=== PATIENT | female | born 1940 | race African-American/Black ===

== ENCOUNTER → 2016-04-16 | Outpatient (CLI) | payer MEDICARE, BC, OTHER ==
[~2016-04-16] MED LIST: 00186-0372-20 IH; ADVAIR 100/28 DISKUS IH; ALBUTEROL0.83 MG/ML IH; ASPIRIN 32325 MG/TAB PO; CALCIUM CARB W/1 TA1 PO; CELEXA 20MG20 MG/TA1 PO; CELEXA40 MG PO; CLARITIN 1010 MG/TAB PO; COMBIVENT INH14.7 GM IH; COUMADIN3 MG PO; DOXYCYCLINE 10100 MG PO; FENTANYL; FERROUS SU325 MG/TAB PO; FLAX OIL1000 MG PO; FLEXERIL 1010 MG/TAB PO; FLONASEALLERGY NS; GABAPENTIN TAB600 MG PO; GABAPENTIN600 MG PO; IPRATROPIUM BROM3 M1 IH; LEVAQUIN 5500 MG/TA1 PO; LIDODERM 5% PATC1 EA TP; LIPITOR 80MG80 MG PO; LODINE200 MG PO; LORTAB 10/500 51 TAB PO; LORTAB 5/500 501 TAB PO; LORTAB 7.5/5001 TAB PO; METOPROLOL SUCC25 MG PO; MIRALAX PA17 GM/Dose PO; NEURONTIN600 MG/TAB PO; NITROSTAT0.4 MG SL; NORCO 325 MG-51 TAB PO; NORCO 325 MG-7.1 TAB PO; OMEGA-3 FISH1000 MG PO; PERCOCET 325 MG1 TA2 PO; PLAVIX 75MG TAB75 MG PO; PREDNISONE10 MG PO; PREDNISONE20 MG PO; PREMARIN .3MG0.3 MG PO; PRILOSEC 20MG20 MG PO; PROVENTIL0.09 MG/A1 IH; RT ADVAIR 128 DISKUS IH; SIMVASTATIN20 MG PO; SINGULAIR 110 MG/TAB PO; TESSALON PERLE200 MG PO; TRIAMCINOLONE A15 G3 TP; VENTOLIN0.09 MG IH; VITAMIN D1000 IU PO; VOLTAREN GEL 1%1 TU TP; ZANTAC 150MG T150 MG PO; ZESTRIL2.5 MG PO; ZITHROMAX Z PA250 MG PO; ZOCOR 20MG20 MG PO; [UNRECOGNIZED DRUG - OTHER] PO
== END ==
LOC: MC.RAD 08:05
DX: Z12.31 Encounter for screening mammogram for malignant neoplasm of breast (principal); Z80.3 Family history of malignant neoplasm of breast

== ENCOUNTER → 2016-11-18 | Outpatient (CLI) | payer MEDICARE, BC, OTHER | LOC: COL.PUL 10:00 | DX: R06.02 Shortness of breath (principal); Z87.891 Personal history of nicotine dependence | CPT/HCPCS: J7674 ==

== ENCOUNTER 2017-03-19 13:00 | Outpatient (RCR) | payer MEDICARE, BC, OTHER ==
[2017-01-22 15:30] VITALS: BP 138/55; PULSE 64; TEMP 97.9
[2017-02-19 12:56] VITALS: BP 114/64; PULSE 67; TEMP 97.5
[~2017-03-19] VITALS: Ht 165.1 cm; Wt 82.4 kg
[2017-03-19 13:00] VITALS: BP 126/57; PULSE 67; TEMP 97.3
[~2017-03-19 13:00] MED LIST changes: +AMOXICILLIN 25250 MG
[2017-03-19] MEDS ORDERED: VITAMIN C500 MG PO (13:10)
[2017-03-19] MEDS ORDERED: ZITHROMAX 250M250 MG PO (13:10)
[2017-03-19] MEDS ORDERED: FOLIC ACID 40400 MCG PO (13:10)
[2017-03-19] MEDS ORDERED: RT SPIRIVA18 MCG IH (13:11)
[2017-03-19] MEDS ORDERED: XOPENEX HF0.045 MG/A IH (13:12)
== END 2017-03-19 13:38 | disposition home or self-care (01) ==
LOC: EUO 13:00
DX: J45.40 Moderate persistent asthma, uncomplicated (principal); Z79.899 Other long term (current) drug therapy
CPT/HCPCS: J2182

== ENCOUNTER 2017-04-14 17:46 | Inpatient (IN) | payer MEDICARE, BC, OTHER ==
[~2017-04-14] VITALS: Ht 175.3 cm; Wt 89.0 kg
[~2017-04-14 17:46] MED LIST changes: +CELEXA 20MG20 MG/TAB PO; -CELEXA40 MG PO; +FOLIC ACID 40400 MCG PO; -RT ADVAIR 128 DISKUS IH; +RT ADVAIR 528 DISKUS IH; +RT SPIRIVA18 MCG IH; +VITAMIN C500 MG PO; +XARELTO10 MG PO; +XOPENEX HF0.045 MG/A IH; +ZITHROMAX 250M250 MG PO
[2017-04-14 18:18] LABS: BASO % 0.5 % (0.0-2.0); EOS # 0.1 (0.0-0.7); EOS % 0.7 % (0-4.0); GRAN # 5.2 (1.4-6.5); GRAN % 68.3 % (42.2-75.2); HEMATOCRIT 25.8 % (37.0-47.0); HEMOGLOBIN 8.4 g/dl (12.5-16.0); LYMPH # 1.1 (1.2-3.4); LYMPH % 13.8 % (20.0-51.0); MEAN CELL VOLUME 81 fl (80.0-100.0); MEAN CORPUSCULAR HEMOGLOBIN 26 pg (27.0-31.0); MEAN CORPUSCULAR HGB CONC 33 g/dl (33.0-37.0); MEAN PLATELET VOLUME 10.1 fl (7.4-10.4); MONO # 1.2 (0.1-0.6); MONO % 16.3 % (1.7-9.3); PLATELET COUNT 254 K/mm3 (130-400); RED BLOOD COUNT 3.17 M/mm3 (4.10-5.30); REDCELL DISTRIBUTION WIDTH-CV 14.3 % (11.5-14.5)
[2017-04-14 18:29] LABS: ALBUMIN 3.2 gm/dL (3.5-5.0); BILIRUBIN,TOTAL 0.5 mg/dL (0.0-1.0); CALCIUM 8.9 mg/dL (8.4-10.2); CREATININE, serum 0.82 mg/dL (0.52-1.25); POTASSIUM 4.3 mmol/L (3.4-5.0); TOTAL PROTEIN 6.3 gm/dL (6.4-8.2)
[2017-04-14 19:22] LABS: COLLECTION METHOD CLEAN CATCH
[2017-04-14] MEDS ORDERED: TYLENOL SU650 MG/SUP RC (19:31)
[2017-04-14] MEDS ORDERED: DULCOLAX S10 MG/SUPP RC (19:32)
[2017-04-14 19:40] LABS: PH 5 (5-8); URINE APPEARANCE Clear; URINE BACTERIA None Seen /hpf; URINE BILIRUBIN Negative (NEGATIVE); URINE BLOOD Negative (NEGATIVE); URINE COLOR Yellow; URINE GLUCOSE Negative (NEGATIVE); URINE KETONE Negative (NEGATIVE); URINE LEUKOCYTE ESTERASE Negative (NEGATIVE); URINE NITRATE Negative (NEGATIVE); URINE PROTEIN(semi-quant) Negative (NEGATIVE); URINE RBC 0-2 /hpf; URINE UROBILINOGEN Negative (NEGATIVE)
[2017-04-14] MEDS ORDERED: IMODIUM 2MG CAPS2 MG PO (19:41)
[2017-04-14] MEDS ORDERED: GOOD NEIGH1200 MG/15 PO (19:42)
[2017-04-14] MEDS ORDERED: TYLENOL 325MG325 MG PO (19:44)
[2017-04-14 19:45] LABS: INFLUENZA A NEGATIVE; INFLUENZA B NEGATIVE
[2017-04-15 02:05] VITALS: BP 136/63; PULSE 79; TEMP 98.2
[2017-04-15 04:00] VITALS: BP 138/57; PULSE 84; TEMP 100.7
[2017-04-15 06:46] LABS: BASO % 0.4 % (0.0-2.0); EOS # 0.1 (0.0-0.7); EOS % 0.6 % (0-4.0); GRAN # 6.1 (1.4-6.5); GRAN % 73.2 % (42.2-75.2); LYMPH # 0.9 (1.2-3.4); LYMPH % 10.7 % (20.0-51.0); MEAN CELL VOLUME 82 fl (80.0-100.0); MEAN CORPUSCULAR HGB CONC 32 g/dl (33.0-37.0); MEAN PLATELET VOLUME 10.1 fl (7.4-10.4); MONO # 1.2 (0.1-0.6); MONO % 14.7 % (1.7-9.3); PLATELET COUNT 252 K/mm3 (130-400); RED BLOOD COUNT 2.98 M/mm3 (4.10-5.30); REDCELL DISTRIBUTION WIDTH-CV 14.6 % (11.5-14.5)
[2017-04-15 06:49] LABS: HEMATOCRIT 24.5 % (37.0-47.0); HEMOGLOBIN 7.9 g/dl (12.5-16.0); MEAN CORPUSCULAR HEMOGLOBIN 27 pg (27.0-31.0)
[2017-04-15 07:04] LABS: ALANINE AMINOTRANSFERASE 66 U/L (9-52); ALKALINE PHOSPHATASE 113 U/L (50-136); ANION GAP 5 mmol/L (7-16); AST,SGOT 72 U/L (15-37); BILIRUBIN,TOTAL 0.4 mg/dL (0.0-1.0); BLOOD UREA NITROGEN 14 mg/dL (7-17); CALCIUM 8.6 mg/dL (8.4-10.2); CARBON DIOXIDE 29 mmol/L (22-30); CHLORIDE 104 mmol/L (98-107); CREATININE, serum 0.77 mg/dL (0.52-1.25); GLUCOSE 121 mg/dL (74-106); IRON,SERUM 11 ug/dL (35-150); MAGNESIUM 2.3 mg/dL (1.6-2.3); PHOSPHOROUS 2.9 mg/dL (2.5-4.5); POTASSIUM 4.1 mmol/L (3.4-5.0); SODIUM 137 mmol/L (137-145)
[2017-04-15 08:00] VITALS: BP 136/56; PULSE 86; TEMP 101.3
[2017-04-15 08:03] LABS: TOTAL IRON BINDING CAPACITY 209 ug/dL (265-497)
[2017-04-15 08:30] LABS: FERRITIN 102 ng/mL (11-264)
[2017-04-15 14:41] VITALS: BP 134/55; PULSE 88; TEMP 100.2
[2017-04-15 18:17] VITALS: BP 125/91; PULSE 89; TEMP 100.7
[2017-04-15 20:59] VITALS: BP 127/61; PULSE 82; TEMP 99.3
[2017-04-16] VITALS (11 sets, daily range): BP systolic 125–155; BP diastolic 46–63; PULSE 78–93; TEMP 99–102.4
[2017-04-16 06:52] LABS: BASO % 0.5 % (0.0-2.0); EOS # 0.1 (0.0-0.7); EOS % 0.8 % (0-4.0); GRAN # 6.2 (1.4-6.5); GRAN % 72.4 % (42.2-75.2); LYMPH # 1.2 (1.2-3.4); LYMPH % 13.7 % (20.0-51.0); MEAN CELL VOLUME 82 fl (80.0-100.0); MEAN CORPUSCULAR HGB CONC 32 g/dl (33.0-37.0); MEAN PLATELET VOLUME 10.3 fl (7.4-10.4); MONO % 11.8 % (1.7-9.3); PLATELET COUNT 301 K/mm3 (130-400); RED BLOOD COUNT 3.09 M/mm3 (4.10-5.30); REDCELL DISTRIBUTION WIDTH-CV 14.6 % (11.5-14.5)
[2017-04-16 07:08] LABS: BILIRUBIN,TOTAL 0.5 mg/dL (0.0-1.0); CALCIUM 8.8 mg/dL (8.4-10.2); CREATININE, serum 0.75 mg/dL (0.52-1.25); MAGNESIUM 2.2 mg/dL (1.6-2.3); POTASSIUM 4.1 mmol/L (3.4-5.0)
[2017-04-16 07:11] LABS: HEMATOCRIT 25.3 % (37.0-47.0); HEMOGLOBIN 8.1 g/dl (12.5-16.0); MEAN CORPUSCULAR HEMOGLOBIN 26 pg (27.0-31.0)
[2017-04-17 02:11] VITALS: BP 139/44; PULSE 90; TEMP 100.7
[2017-04-17 05:40] VITALS: BP 147/43; PULSE 82; TEMP 97.5
[2017-04-17 06:48] LABS: BASO % 0.3 % (0.0-2.0); EOS # 0.1 (0.0-0.7); EOS % 0.7 % (0-4.0); GRAN % 70.8 % (42.2-75.2); LYMPH % 14.7 % (20.0-51.0); MEAN CELL VOLUME 83 fl (80.0-100.0); MEAN CORPUSCULAR HGB CONC 31 g/dl (33.0-37.0); MEAN PLATELET VOLUME 10.2 fl (7.4-10.4); MONO # 0.9 (0.1-0.6); MONO % 12.5 % (1.7-9.3); PLATELET COUNT 321 K/mm3 (130-400); RED BLOOD COUNT 2.86 M/mm3 (4.10-5.30); REDCELL DISTRIBUTION WIDTH-CV 14.6 % (11.5-14.5)
[2017-04-17 06:57] LABS: CALCIUM 8.9 mg/dL (8.4-10.2); CREATININE, serum 0.72 mg/dL (0.52-1.25); POTASSIUM 3.7 mmol/L (3.4-5.0)
[2017-04-17 06:59] LABS: HEMATOCRIT 23.6 % (37.0-47.0); HEMOGLOBIN 7.4 g/dl (12.5-16.0); MEAN CORPUSCULAR HEMOGLOBIN 26 pg (27.0-31.0)
[2017-04-17 07:28] LABS: ERYTHROCYTE SEDIMENTATION RATE > 140 mm/hr (0-30)
[2017-04-17 11:02] VITALS: BP 126/53; PULSE 72; TEMP 98.4
[2017-04-17 14:00] VITALS: BP 160/76; PULSE 93; TEMP 98.9
[2017-04-17 18:32] VITALS: BP 115/48; PULSE 66; TEMP 101.4
[2017-04-17 22:25] VITALS: BP 115/45; PULSE 85; TEMP 100.1
[2017-04-18] VITALS (11 sets, daily range): BP systolic 107–157; BP diastolic 30–75; PULSE 70–94; TEMP 98.2–99.2
[2017-04-18 07:12] LABS: BASO % 0.3 % (0.0-2.0); EOS # 0.1 (0.0-0.7); EOS % 0.7 % (0-4.0); GRAN # 4.6 (1.4-6.5); GRAN % 69.2 % (42.2-75.2); LYMPH % 15.6 % (20.0-51.0); MEAN CELL VOLUME 82 fl (80.0-100.0); MEAN CORPUSCULAR HGB CONC 32 g/dl (33.0-37.0); MEAN PLATELET VOLUME 10.1 fl (7.4-10.4); MONO # 0.9 (0.1-0.6); MONO % 13.3 % (1.7-9.3); PLATELET COUNT 335 K/mm3 (130-400); RED BLOOD COUNT 2.63 M/mm3 (4.10-5.30); REDCELL DISTRIBUTION WIDTH-CV 14.6 % (11.5-14.5)
[2017-04-18 07:20] LABS: HEMATOCRIT 21.6 % (37.0-47.0); MEAN CORPUSCULAR HEMOGLOBIN 27 pg (27.0-31.0)
[2017-04-18 07:40] LABS: CALCIUM 8.5 mg/dL (8.4-10.2); CREATININE, serum 0.66 mg/dL (0.52-1.25); POTASSIUM 3.6 mmol/L (3.4-5.0)
[2017-04-19] VITALS (10 sets, daily range): BP systolic 112–122; BP diastolic 42–65; PULSE 67–82; TEMP 97.7–98.4
[2017-04-19 06:25] LABS: HEMATOCRIT 22.1 % (37.0-47.0); HEMOGLOBIN 6.9 g/dl (12.5-16.0)
[2017-04-20 05:34] VITALS: BP 121/54; PULSE 73; TEMP 98.4
[2017-04-20 06:56] LABS: CALCIUM 8.7 mg/dL (8.4-10.2); CREATININE, serum 0.66 mg/dL (0.52-1.25); MAGNESIUM 2.1 mg/dL (1.6-2.3); POTASSIUM 3.7 mmol/L (3.4-5.0)
[2017-04-20 07:05] LABS: BASO % 0.2 % (0.0-2.0); EOS # 0.1 (0.0-0.7); EOS % 0.6 % (0-4.0); GRAN # 6.5 (1.4-6.5); GRAN % 74.8 % (42.2-75.2); HEMATOCRIT 23.8 % (37.0-47.0); HEMOGLOBIN 7.5 g/dl (12.5-16.0); LYMPH # 1.4 (1.2-3.4); LYMPH % 15.5 % (20.0-51.0); MEAN CELL VOLUME 83 fl (80.0-100.0); MEAN CORPUSCULAR HEMOGLOBIN 26 pg (27.0-31.0); MEAN CORPUSCULAR HGB CONC 32 g/dl (33.0-37.0); MEAN PLATELET VOLUME 10.4 fl (7.4-10.4); MONO # 0.7 (0.1-0.6); MONO % 7.6 % (1.7-9.3); PLATELET COUNT 375 K/mm3 (130-400); RED BLOOD COUNT 2.88 M/mm3 (4.10-5.30); REDCELL DISTRIBUTION WIDTH-CV 16.2 % (11.5-14.5)
[2017-04-20 09:36] VITALS: BP 117/55; PULSE 82; TEMP 97.7
[2017-04-20 14:26] VITALS: BP 114/49; PULSE 78; TEMP 98.1
[2017-04-20 18:15] VITALS: BP 121/59; PULSE 76; TEMP 98.7
[2017-04-20 21:12] VITALS: BP 103/85; PULSE 86; TEMP 98.7
[2017-04-21 01:40] VITALS: BP 144/58; PULSE 85; TEMP 98.2
[2017-04-21 05:18] VITALS: BP 121/49; PULSE 82; TEMP 98.4
[2017-04-21 06:52] LABS: BASO % 0.2 % (0.0-2.0); EOS # 0.1 (0.0-0.7); EOS % 0.8 % (0-4.0); GRAN % 73.1 % (42.2-75.2); LYMPH # 1.7 (1.2-3.4); LYMPH % 17.4 % (20.0-51.0); MEAN CELL VOLUME 83 fl (80.0-100.0); MEAN CORPUSCULAR HGB CONC 31 g/dl (33.0-37.0); MEAN PLATELET VOLUME 10.1 fl (7.4-10.4); MONO # 0.7 (0.1-0.6); MONO % 7.2 % (1.7-9.3); PLATELET COUNT 443 K/mm3 (130-400); RED BLOOD COUNT 3.14 M/mm3 (4.10-5.30); REDCELL DISTRIBUTION WIDTH-CV 16.1 % (11.5-14.5)
[2017-04-21 06:54] LABS: HEMATOCRIT 25.9 % (37.0-47.0); HEMOGLOBIN 8.1 g/dl (12.5-16.0); MEAN CORPUSCULAR HEMOGLOBIN 26 pg (27.0-31.0)
[2017-04-21 10:11] VITALS: BP 120/58; PULSE 79; TEMP 98.4
[2017-04-21] MEDS ORDERED: VANCOMYCIN 11 G/VIA1 IV (13:25)
[2017-04-21] MEDS ORDERED: FERROUS SU325 MG/TAB PO (13:26)
[2017-04-21] MEDS ORDERED: IPRATROPIUM BROM3 M1 IH (13:26)
[2017-04-21] MEDS ORDERED: HEPARIN LOCK FLU5 M1 IV (13:27)
[2017-04-21] MEDS ORDERED: NS INT FLUSH 1010 ML IV (13:47)
[2017-04-21] MEDS ORDERED: ANTACID 225 MG360 M1 PO (13:48)
[2017-04-21] MEDS ORDERED: COLACE 100100 MG/CAP PO (13:49)
[2017-04-21] MEDS ORDERED: PRIL40 PO (13:50)
[2017-04-21 14:09] VITALS: BP 125/69; PULSE 70; TEMP 98.3
[2017-04-21 15:32] VITALS: BP 125/69; PULSE 70; TEMP 98.3
== END 2017-04-21 15:58 | DRG 486 ==
LOC: COL.ER 17:46 → SURG 21:22
PROVIDERS: Emergency Medicine; Family Medicine; Internal Medicine; Nurse Practitioner Family; Orthopaedic Surgery; Physician Assistant
PROC: 0DC38ZZ Extirpation of Matter from Lower Esophagus, Via Natural or Artificial Opening Endoscopic (ICD-10-PCS; 2017-04-16)
PROC: 0SJC4ZZ Inspection of Right Knee Joint, Percutaneous Endoscopic Approach (ICD-10-PCS; 2017-04-17)
PROC: 02HV33Z Insertion of Infusion Device into Superior Vena Cava, Percutaneous Approach (ICD-10-PCS; 2017-04-18)
PROC: 0SCC4ZZ Extirpation of Matter from Right Knee Joint, Percutaneous Endoscopic Approach (ICD-10-PCS; 2017-04-18)
PROC: 0S9C4ZX Drainage of Right Knee Joint, Percutaneous Endoscopic Approach, Diagnostic (ICD-10-PCS; principal; 2017-04-18 13:00)
DX: T84.53XA Infection and inflammatory reaction due to internal right knee prosthesis, initial encounter (principal); E87.1 Hypo-osmolality and hyponatremia; E44.1 Mild protein-calorie malnutrition; T84.84XA Pain due to internal orthopedic prosthetic devices, implants and grafts, initial encounter; D64.9 Anemia, unspecified; E78.5 Hyperlipidemia, unspecified; M54.5 Low back pain; K29.70 Gastritis, unspecified, without bleeding; T18.128A Food in esophagus causing other injury, initial encounter; J45.30 Mild persistent asthma, uncomplicated; I10 Essential (primary) hypertension; Z86.711 Personal history of pulmonary embolism; Z95.5 Presence of coronary angioplasty implant and graft
CPT/HCPCS: 99222-AI; 99232-AI; 99233-AI; 99239; A9284; C1751; C1894; J0690; J0696; J1100; J1170; J1644; J2270; J2405; J2543; J2704; J2765; J3010; J3370; J7030; J7050; J7120; P9016; Q9967

== ENCOUNTER 2017-04-21 15:26 | Inpatient (IN) | payer MEDICARE, BC, OTHER ==
[~2017-04-21] VITALS: Ht 165.1 cm; Wt 92.3 kg
[~2017-04-21 15:26] MED LIST changes: +ANTACID 225 MG360 M1 PO; +COLACE 100100 MG/CAP PO; +DULCOLAX S10 MG/SUPP RC; +GOOD NEIGH1200 MG/15 PO; +HEPARIN LOCK FLU5 M1 IV; +IMODIUM 2MG CAPS2 MG PO; +NS INT FLUSH 1010 ML IV; +PRIL40 PO; +TYLENOL 325MG325 MG PO; +TYLENOL SU650 MG/SUP RC; +VANCOMYCIN 11 G/VIA1 IV
[2017-04-21 19:20] VITALS: BP 140/47; PULSE 82; TEMP 99.6
[2017-04-22 06:17] VITALS: BP 125/57; PULSE 78; TEMP 99
[2017-04-22 18:30] VITALS: BP 118/50; PULSE 66; TEMP 99.4
[2017-04-23 06:24] VITALS: BP 137/56; PULSE 72; TEMP 98.1
[2017-04-23 06:44] LABS: BASO % 0.3 % (0.0-2.0); EOS % 0.5 % (0-4.0); GRAN # 5.9 (1.4-6.5); GRAN % 74.9 % (42.2-75.2); LYMPH # 1.3 (1.2-3.4); LYMPH % 16.3 % (20.0-51.0); MEAN CELL VOLUME 82 fl (80.0-100.0); MEAN CORPUSCULAR HGB CONC 31 g/dl (33.0-37.0); MEAN PLATELET VOLUME 9.9 fl (7.4-10.4); MONO # 0.6 (0.1-0.6); MONO % 7.4 % (1.7-9.3); PLATELET COUNT 467 K/mm3 (130-400); RED BLOOD COUNT 2.98 M/mm3 (4.10-5.30); REDCELL DISTRIBUTION WIDTH-CV 15.9 % (11.5-14.5)
[2017-04-23 06:57] LABS: HEMATOCRIT 24.3 % (37.0-47.0); HEMOGLOBIN 7.5 g/dl (12.5-16.0); MEAN CORPUSCULAR HEMOGLOBIN 25 pg (27.0-31.0)
[2017-04-23 07:00] LABS: ALBUMIN 2.7 gm/dL (3.5-5.0); BILIRUBIN,TOTAL 0.3 mg/dL (0.0-1.0); CALCIUM 9.1 mg/dL (8.4-10.2); CREATININE, serum 0.71 mg/dL (0.52-1.25); POTASSIUM 3.9 mmol/L (3.4-5.0); TOTAL PROTEIN 5.6 gm/dL (6.4-8.2)
[2017-04-23 07:12] LABS: C-REACTIVE PROTEIN 15.1 mg/dL (0.0-0.9)
[2017-04-23 07:30] LABS: ERYTHROCYTE SEDIMENTATION RATE 71 mm/hr (0-30)
[2017-04-23 18:50] VITALS: BP 123/50; BP 144/72; PULSE 75; PULSE 79; TEMP 98.5; TEMP 98.6
[2017-04-24 05:21] VITALS: BP 135/47; PULSE 72; TEMP 98.5
[2017-04-24 14:17] LABS: COLLECTION METHOD CLEAN CATCH
[2017-04-24 14:50] LABS: MUCOUS Present /lpf; PH 6 (5-8); SQUAMOUS EPITHELIAL 0-2 /hpf; URINE APPEARANCE Clear; URINE BACTERIA None Seen /hpf; URINE BILIRUBIN Negative (NEGATIVE); URINE BLOOD Negative (NEGATIVE); URINE COLOR Yellow; URINE GLUCOSE Negative (NEGATIVE); URINE KETONE Negative (NEGATIVE); URINE LEUKOCYTE ESTERASE Negative (NEGATIVE); URINE NITRATE Negative (NEGATIVE); URINE PROTEIN(semi-quant) Negative (NEGATIVE); URINE RBC None Seen /hpf; URINE UROBILINOGEN Negative (NEGATIVE)
[2017-04-24 16:09] VITALS: BP 131/52; PULSE 74; TEMP 97.7
[2017-04-25 04:05] VITALS: BP 138/56; PULSE 74; TEMP 98.4
[2017-04-25 06:44] LABS: HEMATOCRIT 26.4 % (37.0-47.0); HEMOGLOBIN 8.2 g/dl (12.5-16.0)
[2017-04-25 18:00] VITALS: BP 130/47; PULSE 67; TEMP 99.1
[2017-04-26 04:55] VITALS: BP 121/46; PULSE 75; TEMP 98.5
[2017-04-26 16:00] VITALS: BP 153/43; PULSE 87; TEMP 98.7
[2017-04-27 05:30] VITALS: BP 131/45; PULSE 76; TEMP 98.4
[2017-04-27 15:53] VITALS: BP 136/48; PULSE 74; TEMP 97.4
[2017-04-28 03:47] VITALS: BP 137/48; PULSE 81; TEMP 98.5
[2017-04-28 14:17] LABS: BASO % 0.7 % (0.0-2.0); EOS # 0.1 (0.0-0.7); EOS % 1.5 % (0-4.0); GRAN # 3.7 (1.4-6.5); GRAN % 61.2 % (42.2-75.2); HEMATOCRIT 26.1 % (37.0-47.0); HEMOGLOBIN 8.1 g/dl (12.5-16.0); LYMPH # 1.3 (1.2-3.4); LYMPH % 20.9 % (20.0-51.0); MEAN CELL VOLUME 82 fl (80.0-100.0); MEAN CORPUSCULAR HEMOGLOBIN 25 pg (27.0-31.0); MEAN CORPUSCULAR HGB CONC 31 g/dl (33.0-37.0); MEAN PLATELET VOLUME 9.1 fl (7.4-10.4); MONO # 0.9 (0.1-0.6); MONO % 15.4 % (1.7-9.3); PLATELET COUNT 438 K/mm3 (130-400); RED BLOOD COUNT 3.19 M/mm3 (4.10-5.30)
[2017-04-28 14:29] LABS: ALBUMIN 3.5 gm/dL (3.5-5.0); BILIRUBIN,TOTAL 0.3 mg/dL (0.0-1.0); CALCIUM 9.1 mg/dL (8.4-10.2); CREATININE, serum 0.92 mg/dL (0.52-1.25); POTASSIUM 4.2 mmol/L (3.4-5.0); TOTAL PROTEIN 6.7 gm/dL (6.4-8.2)
[2017-04-28 16:05] VITALS: BP 148/71; PULSE 84; TEMP 101.3
[2017-04-28 21:36] LABS: COLLECTION METHOD CLEAN CATCH
[2017-04-28 21:43] LABS: MUCOUS Present /lpf; PH 6 (5-8); SQUAMOUS EPITHELIAL 0-2 /hpf; URINE APPEARANCE Clear; URINE BACTERIA None Seen /hpf; URINE BILIRUBIN Negative (NEGATIVE); URINE BLOOD Negative (NEGATIVE); URINE COLOR Yellow; URINE GLUCOSE Negative (NEGATIVE); URINE KETONE Negative (NEGATIVE); URINE LEUKOCYTE ESTERASE Negative (NEGATIVE); URINE NITRATE Negative (NEGATIVE); URINE PROTEIN(semi-quant) Negative (NEGATIVE); URINE RBC 0-2 /hpf; URINE UROBILINOGEN Negative (NEGATIVE); URINE WBC 0-2 /hpf
[2017-04-28 22:48] VITALS: TEMP 100
[2017-04-29 06:09] VITALS: BP 142/47; PULSE 75; TEMP 100.1; TEMP 100.7
[2017-04-29 12:31] VITALS: BP 177/54; PULSE 80; TEMP 102.9
[2017-04-29 19:50] VITALS: BP 155/76; TEMP 100.2
[2017-04-30 02:31] VITALS: BP 107/88; PULSE 84; TEMP 100.1; TEMP 98.5
[2017-04-30 07:44] LABS: BASO % 0.7 % (0.0-2.0); EOS # 0.1 (0.0-0.7); EOS % 2.3 % (0-4.0); GRAN # 1.7 (1.4-6.5); GRAN % 56.3 % (42.2-75.2); LYMPH # 0.6 (1.2-3.4); LYMPH % 20.2 % (20.0-51.0); MEAN CELL VOLUME 81 fl (80.0-100.0); MEAN CORPUSCULAR HGB CONC 31 g/dl (33.0-37.0); MEAN PLATELET VOLUME 9.5 fl (7.4-10.4); MONO # 0.6 (0.1-0.6); MONO % 20.2 % (1.7-9.3); PLATELET COUNT 368 K/mm3 (130-400); RED BLOOD COUNT 3.03 M/mm3 (4.10-5.30); REDCELL DISTRIBUTION WIDTH-CV 16.1 % (11.5-14.5)
[2017-04-30 07:46] LABS: ALBUMIN 3.1 gm/dL (3.5-5.0); BILIRUBIN,TOTAL 0.3 mg/dL (0.0-1.0); C-REACTIVE PROTEIN 7.2 mg/dL (0.0-0.9); CALCIUM 8.8 mg/dL (8.4-10.2); CREATININE, serum 0.87 mg/dL (0.52-1.25); POTASSIUM 3.9 mmol/L (3.4-5.0); TOTAL PROTEIN 6.3 gm/dL (6.4-8.2)
[2017-04-30 07:54] LABS: HEMATOCRIT 24.5 % (37.0-47.0); HEMOGLOBIN 7.7 g/dl (12.5-16.0); MEAN CORPUSCULAR HEMOGLOBIN 25 pg (27.0-31.0)
[2017-04-30 07:56] LABS: VANCOMYCIN TROUGH 17.4 ug/mL (7.00-20.00)
[2017-04-30 08:04] LABS: ERYTHROCYTE SEDIMENTATION RATE 58 mm/hr (0-30)
[2017-04-30 11:48] VITALS: BP 118/51; PULSE 67; TEMP 98.6
[2017-04-30 14:16] VITALS: BP 135/45; PULSE 66; TEMP 98.6
[2017-04-30 20:41] VITALS: TEMP 100.4
[2017-04-30 22:15] VITALS: TEMP 103
[2017-05-01 00:40] LABS: COLLECTION METHOD CLEAN CATCH
[2017-05-01 00:45] VITALS: TEMP 101
[2017-05-01 00:48] LABS: MUCOUS Present /lpf; PH 6 (5-8); SQUAMOUS EPITHELIAL 0-2 /hpf; URINE APPEARANCE Clear; URINE BACTERIA None Seen /hpf; URINE BILIRUBIN Negative (NEGATIVE); URINE BLOOD Negative (NEGATIVE); URINE COLOR Straw; URINE GLUCOSE Negative (NEGATIVE); URINE KETONE Negative (NEGATIVE); URINE LEUKOCYTE ESTERASE Negative (NEGATIVE); URINE NITRATE Negative (NEGATIVE); URINE PROTEIN(semi-quant) Negative (NEGATIVE); URINE RBC 0-2 /hpf; URINE UROBILINOGEN Negative (NEGATIVE)
[2017-05-01 01:36] VITALS: TEMP 100.8
[2017-05-01 01:57] VITALS: TEMP 99.2
[2017-05-01 05:09] VITALS: BP 103/75; PULSE 78; TEMP 100.2
[2017-05-01 06:28] VITALS: TEMP 99.1
[2017-05-01] MEDS ORDERED: INCRUSE EL62.5 MCG/A IH (08:43)
[2017-05-01] MEDS ORDERED: XARELTO10 MG PO (08:44)
[2017-05-01] MEDS ORDERED: PROAIR HFA0.09 MG/AC IH (08:44)
[2017-05-01] MEDS ORDERED: LASIX 20MG TABL20 MG PO (08:45)
[2017-05-01] MEDS ORDERED: ULTRAM 50MG TAB50 MG PO (08:45)
[2017-05-01] MEDS ORDERED: MYCOSTATIN100000 U/1 TP (08:46)
[2017-05-01] MEDS ORDERED: ZOSYN 3.373.375 GM/V IV (08:46)
[2017-05-05] MEDS ORDERED: XARELTO10 MG PO (08:17)
[2017-05-05] MEDS ORDERED: PROAIR HFA0.09 MG/AC IH (08:59)
[2017-05-05] MEDS ORDERED: ULTRAM 50MG TAB50 MG PO (09:24)
[2017-05-05] MEDS ORDERED: COLACE 100100 MG/CAP PO (09:24)
[2017-05-05] MEDS ORDERED: PRIL40 PO (09:24)
[2017-05-05] MEDS ORDERED: LASIX 20MG TABL20 MG PO (09:24)
== END 2017-05-01 09:14 | DRG 947 ==
PROVIDERS: Family Medicine; Internal Medicine; Internal Medicine Infectious Disease
PROC: 0S9C3ZX Drainage of Right Knee Joint, Percutaneous Approach, Diagnostic (ICD-10-PCS; principal; 2017-04-30)
DX: R53.81 Other malaise (principal); I50.33 Acute on chronic diastolic (congestive) heart failure; L03.115 Cellulitis of right lower limb; E87.1 Hypo-osmolality and hyponatremia; E44.1 Mild protein-calorie malnutrition; Z96.651 Presence of right artificial knee joint; J45.30 Mild persistent asthma, uncomplicated; I10 Essential (primary) hypertension; I25.10 Atherosclerotic heart disease of native coronary artery without angina pectoris; Z95.5 Presence of coronary angioplasty implant and graft; Z87.891 Personal history of nicotine dependence; Z86.711 Personal history of pulmonary embolism; Z79.01 Long term (current) use of anticoagulants; I11.0 Hypertensive heart disease with heart failure; R50.9 Fever, unspecified
CPT/HCPCS: 99222-AI; 99232-AI; 99233-AI; 99239; J0692; J1644; J2543; J3370; J7050

== ENCOUNTER 2017-05-15 03:02 | Emergency (ER) | payer MEDICARE, BC, OTHER ==
[~2017-05-15] VITALS: Ht 165.1 cm; Wt 79.1 kg
[~2017-05-15 03:02] MED LIST changes: +INCRUSE EL62.5 MCG/A IH; +LASIX 20MG TABL20 MG PO; +MYCOSTATIN100000 U/1 TP; +PROAIR HFA0.09 MG/AC IH; +ULTRAM 50MG TAB50 MG PO; +ZOSYN 3.373.375 GM/V IV
[2017-05-15 03:05] VITALS: BP 117/56; TEMP 98.5
[2017-05-15 03:56] LABS: BASO % 0.6 % (0.0-2.0); EOS % 0.6 % (0-4.0); GRAN # 4.7 (1.4-6.5); GRAN % 66.2 % (42.2-75.2); LYMPH # 1.3 (1.2-3.4); MEAN CELL VOLUME 82 fl (80.0-100.0); MEAN CORPUSCULAR HGB CONC 31 g/dl (33.0-37.0); MEAN PLATELET VOLUME 9.2 fl (7.4-10.4); MONO # 0.9 (0.1-0.6); MONO % 13.2 % (1.7-9.3); PLATELET COUNT 320 K/mm3 (130-400); RED BLOOD COUNT 3.68 M/mm3 (4.10-5.30); REDCELL DISTRIBUTION WIDTH-CV 16.6 % (11.5-14.5)
[2017-05-15 03:58] LABS: HEMOGLOBIN 9.4 g/dl (12.5-16.0); MEAN CORPUSCULAR HEMOGLOBIN 26 pg (27.0-31.0)
[2017-05-15 04:02] LABS: INR 1.5 (0.8-3.0); PROTHROMBIN TIME 17.9 SECONDS (9.7-12.8)
[2017-05-15 04:13] LABS: ALANINE AMINOTRANSFERASE 27 U/L (9-52); ALBUMIN 3.5 gm/dL (3.5-5.0); ALKALINE PHOSPHATASE 100 U/L (50-136); ANION GAP 8 mmol/L (7-16); AST,SGOT 23 U/L (15-37); BILIRUBIN,TOTAL 0.4 mg/dL (0.0-1.0); BLOOD UREA NITROGEN 10 mg/dL (7-17); CALCIUM 9.8 mg/dL (8.4-10.2); CARBON DIOXIDE 26 mmol/L (22-30); CHLORIDE 107 mmol/L (98-107); CREATININE, serum 0.66 mg/dL (0.52-1.25); GLUCOSE 115 mg/dL (74-106); POTASSIUM 3.9 mmol/L (3.4-5.0); SODIUM 140 mmol/L (137-145); TOTAL PROTEIN 6.7 gm/dL (6.4-8.2)
[2017-05-15 04:25] LABS: TROPONIN-I < 0.012 ng/mL (0.000-0.034)
[2017-05-15 05:13] LABS: COLLECTION METHOD CLEAN CATCH
[2017-05-15 05:18] VITALS: PULSE 83
[2017-05-15 05:31] LABS: PH 5 (5-8); URINE APPEARANCE Hazy; URINE BILIRUBIN Negative (NEGATIVE); URINE BLOOD Negative (NEGATIVE); URINE COLOR Yellow; URINE GLUCOSE Negative (NEGATIVE); URINE KETONE Negative (NEGATIVE); URINE LEUKOCYTE ESTERASE Negative (NEGATIVE); URINE NITRATE Negative (NEGATIVE); URINE PROTEIN(semi-quant) Negative (NEGATIVE); URINE UROBILINOGEN Negative (NEGATIVE)
[2017-05-15 05:32] LABS: MUCOUS Present /lpf; URINE BACTERIA Occasional /hpf; URINE RBC 0-2 /hpf
[2017-05-15 05:33] LABS: BUDDING YEAST Present /hpf
== END 2017-05-15 05:18 | disposition home or self-care (01) ==
LOC: COL.ER 03:02
PROVIDERS: Emergency Medicine
DX: S39.011A Strain of muscle, fascia and tendon of abdomen, initial encounter (principal); I10 Essential (primary) hypertension; Z95.5 Presence of coronary angioplasty implant and graft; Z79.02 Long term (current) use of antithrombotics/antiplatelets; X58.XXXA Exposure to other specified factors, initial encounter; Y92.009 Unspecified place in unspecified non-institutional (private) residence as the place of occurrence of the external cause
CPT/HCPCS: J1885

== ENCOUNTER → 2017-08-19 | Outpatient (CLI) | payer MEDICARE, BC, OTHER | LOC: MC.RAD 09:14 | DX: Z12.31 Encounter for screening mammogram for malignant neoplasm of breast (principal) ==

== ENCOUNTER 2017-11-17 07:31 | Emergency (ER) | payer MEDICARE, BC, OTHER ==
[~2017-11-17] VITALS: Ht 165.1 cm; Wt 77.3 kg
[2017-11-17 07:34] VITALS: BP 140/68; PULSE 63; TEMP 98.2
[2017-11-17] MEDS ORDERED: LIDODERM 5% PATC1 EA TP (08:10)
== END 2017-11-17 08:17 | disposition home or self-care (01) ==
LOC: COL.ER 07:31
DX: S20.212A Contusion of left front wall of thorax, initial encounter (principal); R07.89 Other chest pain; J45.909 Unspecified asthma, uncomplicated; E78.5 Hyperlipidemia, unspecified; I25.10 Atherosclerotic heart disease of native coronary artery without angina pectoris; Z95.5 Presence of coronary angioplasty implant and graft; W01.0XXA Fall on same level from slipping, tripping and stumbling without subsequent striking against object, initial encounter

== ENCOUNTER 2018-01-05 13:47 | Outpatient (CLI) | payer MEDICARE, OTHER ==
[~2018-01-05] VITALS: Ht 165.1 cm; Wt 67.3 kg
[~2018-01-05 13:47] MED LIST changes: +CELEXA40 MG PO; +FERROUSAL325 MG PO; +NUCALA100 MG SQ
[2018-01-05 14:00] VITALS: BP 126/62; PULSE 75; TEMP 98.6
== END 2018-01-05 14:51 | disposition home or self-care (01) ==
LOC: EUO 13:47
DX: J45.40 Moderate persistent asthma, uncomplicated (principal)

== ENCOUNTER 2018-02-04 13:43 | Outpatient (CLI) | payer MEDICARE, OTHER ==
[~2018-02-04] VITALS: Ht 165.1 cm; Wt 82.2 kg
[2018-02-04 14:01] VITALS: BP 151/64; PULSE 72; TEMP 97.7
== END 2018-02-04 14:29 | disposition home or self-care (01) ==
LOC: EUO 13:43
DX: J45.40 Moderate persistent asthma, uncomplicated (principal); Z79.899 Other long term (current) drug therapy
CPT/HCPCS: J2182

== ENCOUNTER → 2018-03-04 | Outpatient (CLI) | payer MEDICARE, OTHER | LOC: COL.RAD 09:04 | DX: M25.561 Pain in right knee (principal); Z96.651 Presence of right artificial knee joint | CPT/HCPCS: A9503 ==

== ENCOUNTER 2018-03-05 13:34 | Outpatient (CLI) | payer MEDICARE, OTHER ==
[2018-03-05 14:16] VITALS: BP 151/52; PULSE 73; TEMP 98.3
== END 2018-03-05 14:46 | disposition home or self-care (01) ==
LOC: EUO 13:34
DX: J45.40 Moderate persistent asthma, uncomplicated (principal); Z79.899 Other long term (current) drug therapy
CPT/HCPCS: J2182

== ENCOUNTER 2018-04-02 13:46 | Outpatient (CLI) | payer MEDICARE, OTHER ==
[~2018-04-02] VITALS: Ht 165.1 cm; Wt 82.6 kg
[2018-04-02 14:38] VITALS: BP 137/59; PULSE 66; TEMP 98.6
== END 2018-04-02 16:06 | disposition home or self-care (01) ==
LOC: EUO 13:46
DX: J45.40 Moderate persistent asthma, uncomplicated (principal); Z79.899 Other long term (current) drug therapy
CPT/HCPCS: J2182

== ENCOUNTER 2018-04-30 13:21 | Outpatient (CLI) | payer MEDICARE, OTHER ==
[~2018-04-30] VITALS: Ht 165.1 cm; Wt 82.1 kg
[2018-04-30 14:16] VITALS: BP 124/59; PULSE 64; TEMP 97.1
== END 2018-04-30 14:39 | disposition home or self-care (01) ==
LOC: EUO 13:21
DX: J45.40 Moderate persistent asthma, uncomplicated (principal); Z79.899 Other long term (current) drug therapy
CPT/HCPCS: J2182

== ENCOUNTER 2018-05-28 13:25 | Outpatient (CLI) | payer MEDICARE, OTHER ==
[~2018-05-28] VITALS: Ht 165.1 cm; Wt 82.4 kg
[2018-05-28 13:30] VITALS: BP 153/57; PULSE 78; TEMP 97.6
== END 2018-05-28 13:40 | disposition home or self-care (01) ==
LOC: EUO 13:25
DX: J45.40 Moderate persistent asthma, uncomplicated (principal); Z79.899 Other long term (current) drug therapy
CPT/HCPCS: J2182

== ENCOUNTER 2018-06-25 13:24 | Outpatient (CLI) | payer MEDICARE, OTHER ==
[~2018-06-25] VITALS: Ht 165.1 cm; Wt 81.0 kg
[2018-06-25 13:37] VITALS: BP 136/57; PULSE 66; TEMP 98.3
--- NOTE | 2018-06-25 14:25 | NUR ---
Pt justo nucala well. Pt discharged per ambulation with cane.
== END 2018-06-25 14:25 | disposition home or self-care (01) ==
LOC: EUO 13:24
DX: J45.40 Moderate persistent asthma, uncomplicated (principal); Z79.899 Other long term (current) drug therapy
CPT/HCPCS: J2182

== ENCOUNTER → 2018-07-23 | Outpatient (CLI) | payer MEDICARE, OTHER ==
[~2018-07-23] VITALS: Ht 165.1 cm; Wt 81.0 kg
[2018-07-23 14:17] VITALS: BP 124/55; PULSE 69; TEMP 98.2
== END ==
LOC: EUO 13:28
DX: J45.40 Moderate persistent asthma, uncomplicated (principal); Z79.899 Other long term (current) drug therapy
CPT/HCPCS: J2182

== ENCOUNTER → 2018-08-07 | Outpatient (CLI) | payer MEDICARE, OTHER | LOC: COL.RAD 13:18 | DX: J45.40 Moderate persistent asthma, uncomplicated (principal); Z98.1 Arthrodesis status ==

== ENCOUNTER 2018-08-20 13:36 | Outpatient (CLI) | payer MEDICARE, OTHER ==
[~2018-08-20] VITALS: Ht 165.1 cm; Wt 83.0 kg
[2018-08-20 13:57] VITALS: BP 132/60; PULSE 61; TEMP 98.3
--- NOTE | 2018-08-20 14:29 | NUR ---
Pt justo nucala well. Pt discharged per ambulation with cane.
== END 2018-08-20 14:29 | disposition home or self-care (01) ==
LOC: EUO 13:36
DX: J45.40 Moderate persistent asthma, uncomplicated (principal); Z79.899 Other long term (current) drug therapy
CPT/HCPCS: J2182

== ENCOUNTER → 2018-09-04 | Outpatient (CLI) | payer MEDICARE, OTHER | LOC: MC.RAD 13:43 | DX: Z12.31 Encounter for screening mammogram for malignant neoplasm of breast (principal) ==

== ENCOUNTER 2018-09-17 13:42 | Outpatient (CLI) | payer MEDICARE, OTHER ==
[~2018-09-17] VITALS: Ht 165.1 cm; Wt 82.6 kg
[2018-09-17 14:26] VITALS: BP 129/49; PULSE 65; TEMP 98.4
== END 2018-09-17 14:31 | disposition home or self-care (01) ==
LOC: EUO 13:42
DX: J45.40 Moderate persistent asthma, uncomplicated (principal); Z79.899 Other long term (current) drug therapy
CPT/HCPCS: J2182

== ENCOUNTER 2018-10-15 13:44 | Outpatient (CLI) | payer MEDICARE, OTHER, BC ==
[~2018-10-15] VITALS: Ht 165.1 cm; Wt 83.4 kg
[2018-10-15 14:09] VITALS: BP 135/55; PULSE 62; TEMP 98.2
== END 2018-10-15 14:36 | disposition home or self-care (01) ==
LOC: EUO 13:44
DX: J45.40 Moderate persistent asthma, uncomplicated (principal); Z79.899 Other long term (current) drug therapy
CPT/HCPCS: J2182

== ENCOUNTER 2018-11-12 13:46 | Outpatient (CLI) | payer MEDICARE, OTHER ==
[~2018-11-12] VITALS: Ht 165.1 cm; Wt 80.0 kg
[2018-11-12 14:32] VITALS: BP 125/59; PULSE 61; TEMP 97.8
== END 2018-11-12 14:44 | disposition home or self-care (01) ==
LOC: EUO 13:46
DX: J45.40 Moderate persistent asthma, uncomplicated (principal); Z79.899 Other long term (current) drug therapy
CPT/HCPCS: J2182

== ENCOUNTER 2018-12-10 13:51 | Outpatient (CLI) | payer MEDICARE, OTHER ==
[~2018-12-10] VITALS: Ht 165.1 cm; Wt 80.9 kg
[2018-12-10 15:19] VITALS: BP 162/78; PULSE 80; TEMP 97.4
== END 2018-12-10 15:00 | disposition home or self-care (01) ==
LOC: EUO 13:51
DX: J45.40 Moderate persistent asthma, uncomplicated (principal); Z79.899 Other long term (current) drug therapy
CPT/HCPCS: J2182

== ENCOUNTER 2019-01-07 13:32 | Outpatient (CLI) | payer MEDICARE, OTHER ==
[~2019-01-07] VITALS: Ht 165.1 cm; Wt 80.6 kg
[2019-01-07 14:00] VITALS: BP 124/42; BP 141/72; PULSE 80; PULSE 806; TEMP 98.1; TEMP 98.3
== END 2019-01-07 15:15 | disposition home or self-care (01) ==
LOC: EUO 13:32
DX: J45.40 Moderate persistent asthma, uncomplicated (principal); Z79.899 Other long term (current) drug therapy
CPT/HCPCS: J2182

== ENCOUNTER 2019-02-04 13:19 | Outpatient (CLI) | payer MEDICARE, OTHER ==
[~2019-02-04] VITALS: Ht 165.1 cm; Wt 81.0 kg
[2019-02-04 13:41] VITALS: BP 143/62; PULSE 71; TEMP 98
== END 2019-02-04 14:50 | disposition home or self-care (01) ==
LOC: EUO 13:19
DX: J45.40 Moderate persistent asthma, uncomplicated (principal); Z79.899 Other long term (current) drug therapy
CPT/HCPCS: J2182

== ENCOUNTER → 2019-03-08 | Outpatient (CLI) | payer MEDICARE, OTHER ==
[~2019-03-08] VITALS: Ht 165.1 cm; Wt 82.6 kg
[2019-03-08 14:10] VITALS: BP 138/64; PULSE 69; TEMP 97.8
== END ==
LOC: EUO 03-04 13:30
DX: J45.40 Moderate persistent asthma, uncomplicated (principal); Z79.899 Other long term (current) drug therapy
CPT/HCPCS: J2182

== ENCOUNTER 2019-04-05 13:32 | Outpatient (CLI) | payer MEDICARE, OTHER ==
[~2019-04-05] VITALS: Ht 165.1 cm; Wt 81.0 kg
[2019-04-05] MEDS ORDERED: TYLENOL 8 HR PO (13:50)
[2019-04-05 13:51] VITALS: BP 129/54; PULSE 69; TEMP 97.6
[2019-04-05] MEDS ORDERED: CARAFATE 1GM1 G PO (13:53)
[2019-04-05] MEDS ORDERED: ATROVENT NASAL15 ML NS (13:56)
--- NOTE | 2019-04-05 14:16 | NUR ---
Pt justo Wilson well. Pt discharged per ambulation.
== END 2019-04-05 14:17 | disposition home or self-care (01) ==
LOC: EUO 13:32
DX: J45.40 Moderate persistent asthma, uncomplicated (principal); Z79.899 Other long term (current) drug therapy
CPT/HCPCS: J2182

== ENCOUNTER 2019-05-03 13:36 | Outpatient (CLI) | payer MEDICARE, OTHER ==
[~2019-05-03] VITALS: Ht 165.1 cm; Wt 83.5 kg
[~2019-05-03 13:36] MED LIST changes: +ATROVENT NASAL15 ML NS; +CARAFATE 1GM1 G PO; +TYLENOL 8 HR PO
[2019-05-03 14:08] VITALS: BP 144/53; PULSE 69; TEMP 97.7
== END 2019-05-03 14:23 | disposition home or self-care (01) ==
LOC: EUO 13:36
DX: J45.40 Moderate persistent asthma, uncomplicated (principal); Z79.899 Other long term (current) drug therapy
CPT/HCPCS: J2182

== ENCOUNTER 2019-06-01 08:03 | Outpatient (CLI) | payer MEDICARE, OTHER ==
[~2019-06-01] VITALS: Ht 165.1 cm; Wt 82.2 kg
[2019-06-01 08:24] VITALS: BP 136/78; PULSE 67; TEMP 97.6
== END 2019-06-01 08:59 | disposition home or self-care (01) ==
LOC: EUO 08:03
DX: J45.40 Moderate persistent asthma, uncomplicated (principal)
CPT/HCPCS: J2182

== ENCOUNTER 2019-07-27 13:15 | Outpatient (CLI) | payer MEDICARE, OTHER ==
[~2019-07-27] VITALS: Ht 165.1 cm; Wt 84.9 kg
[2019-07-27 13:29] VITALS: BP 125/70; PULSE 68; TEMP 98.3
== END 2019-07-27 13:45 | disposition home or self-care (01) ==
LOC: EUO 13:15
DX: J45.40 Moderate persistent asthma, uncomplicated (principal); Z79.899 Other long term (current) drug therapy
CPT/HCPCS: J2182

== ENCOUNTER 2019-08-24 13:21 | Outpatient (CLI) | payer MEDICARE, OTHER ==
[~2019-08-24] VITALS: Ht 165.1 cm; Wt 86.3 kg
[2019-08-24 14:14] VITALS: BP 141/57; PULSE 66; TEMP 98.4
== END 2019-08-24 14:23 | disposition home or self-care (01) ==
LOC: EUO 13:21
DX: J45.40 Moderate persistent asthma, uncomplicated (principal); Z79.899 Other long term (current) drug therapy
CPT/HCPCS: J2182

== ENCOUNTER 2019-09-21 13:36 | Outpatient (CLI) | payer MEDICARE, OTHER ==
--- NOTE | 2019-09-20 11:54 | NUR ---
LEFT MESSAGE TO RETURN PHONE CALL IN REGARDS TO ID SCREENING.
[~2019-09-21] VITALS: Ht 165.1 cm; Wt 85.8 kg
[2019-09-21 14:10] VITALS: BP 115/72; PULSE 63; TEMP 98.4
== END 2019-09-21 16:12 | disposition home or self-care (01) ==
LOC: EUO 13:36
DX: J45.40 Moderate persistent asthma, uncomplicated (principal); Z79.899 Other long term (current) drug therapy
CPT/HCPCS: J2182

== ENCOUNTER → 2019-09-30 | Outpatient (CLI) | payer MEDICARE, OTHER | LOC: MC.RAD 08:30 | DX: Z12.31 Encounter for screening mammogram for malignant neoplasm of breast (principal) ==

== ENCOUNTER → 2019-10-19 | Outpatient (CLI) | payer MEDICARE, OTHER ==
[~2019-10-19] VITALS: Ht 165.1 cm; Wt 85.0 kg
[2019-10-19 13:17] VITALS: BP 125/54; PULSE 112; TEMP 97.8
== END ==
LOC: EUO 13:01
DX: J45.40 Moderate persistent asthma, uncomplicated (principal)
CPT/HCPCS: J2182

== ENCOUNTER 2019-11-09 13:58 | Outpatient (CLI) | payer MEDICARE, OTHER ==
[~2019-11-09] VITALS: Ht 165.1 cm; Wt 84.6 kg
[2019-11-09 14:29] VITALS: BP 153/77; PULSE 64; TEMP 98.3
== END 2019-11-09 19:33 | disposition home or self-care (01) ==
LOC: EUO 13:58
DX: J45.40 Moderate persistent asthma, uncomplicated (principal); Z79.899 Other long term (current) drug therapy
CPT/HCPCS: J2182

== ENCOUNTER 2019-12-07 14:25 | Outpatient (CLI) | payer MEDICARE, OTHER ==
[~2019-12-07] VITALS: Ht 165.1 cm; Wt 85.0 kg
[2019-12-07 15:02] VITALS: BP 145/73; PULSE 64; TEMP 98.6
== END 2019-12-07 15:05 | disposition home or self-care (01) ==
LOC: EUO 14:25
DX: J45.40 Moderate persistent asthma, uncomplicated (principal)
CPT/HCPCS: J2182

== ENCOUNTER 2020-01-04 13:19 | Outpatient (CLI) | payer MEDICARE, OTHER ==
[~2020-01-04] VITALS: Ht 165.1 cm; Wt 84.8 kg
[2020-01-04 13:50] VITALS: BP 105/87; PULSE 74; TEMP 98.2
[2020-01-04] MEDS ORDERED: PROVENTIL0.09 MG/A1 IH (13:57)
[2020-01-04] MEDS ORDERED: IPRATROPIUM BROM3 M1 IH (13:57)
== END 2020-01-04 14:30 | disposition home or self-care (01) ==
LOC: EUO 13:19
DX: J45.40 Moderate persistent asthma, uncomplicated (principal); Z79.899 Other long term (current) drug therapy
CPT/HCPCS: J2182

== ENCOUNTER 2020-02-01 13:33 | Outpatient (CLI) | payer MEDICARE, OTHER ==
[~2020-02-01] VITALS: Ht 165.1 cm; Wt 87.4 kg
[2020-02-01 14:07] VITALS: BP 126/69; PULSE 81; TEMP 98.8
== END 2020-02-01 14:53 | disposition home or self-care (01) ==
LOC: EUO 13:33
DX: J45.40 Moderate persistent asthma, uncomplicated (principal); Z79.899 Other long term (current) drug therapy
CPT/HCPCS: J2182

== ENCOUNTER 2020-03-07 13:40 | Outpatient (CLI) | payer MEDICARE, OTHER ==
[~2020-03-07] VITALS: Ht 165.1 cm; Wt 87.8 kg
[2020-03-07 14:00] VITALS: BP 129/61; PULSE 76; TEMP 98.7
== END 2020-03-07 14:20 | disposition home or self-care (01) ==
LOC: EUO 13:40
DX: J45.40 Moderate persistent asthma, uncomplicated (principal)
CPT/HCPCS: J2182

== ENCOUNTER 2020-04-11 13:20 | Outpatient (CLI) | payer MEDICARE, OTHER ==
[~2020-04-11] VITALS: Ht 165.1 cm; Wt 89.5 kg
[2020-04-11 13:52] VITALS: BP 116/61; PULSE 84; TEMP 98.1
== END 2020-04-11 14:09 | disposition home or self-care (01) ==
LOC: EUO 13:20
DX: J45.40 Moderate persistent asthma, uncomplicated (principal)
CPT/HCPCS: J2182

== ENCOUNTER 2020-05-09 12:46 | Outpatient (CLI) | payer MEDICARE, OTHER ==
[~2020-05-09] VITALS: Ht 165.1 cm; Wt 88.9 kg
[2020-05-09 13:06] VITALS: BP 148/52; PULSE 82; TEMP 98
== END 2020-05-09 13:44 | disposition home or self-care (01) ==
LOC: EUO 12:46
DX: J45.40 Moderate persistent asthma, uncomplicated (principal); Z79.899 Other long term (current) drug therapy
CPT/HCPCS: J2182

== ENCOUNTER 2020-05-30 07:31 | Day surgery (SDC) | payer MEDICARE, OTHER ==
[~2020-05-30] VITALS: Ht 162.6 cm; Wt 84.6 kg
[~2020-05-30 07:31] MED LIST changes: -CELEXA40 MG PO
[2020-05-30] MEDS ORDERED: VOLTAREN GEL 1%1 TU TP (08:59)
[2020-05-30] MEDS ORDERED: NORCO 325 MG-7.1 TAB PO (09:01)
[2020-05-30] MEDS ORDERED: IMODIUM 2MG CAPS2 MG PO (09:09)
[2020-05-30] MEDS ORDERED: LIQUIFILM TEARS15 ML OU (09:09)
[2020-05-30] MEDS ORDERED: NEOSPORIN OPHTH10 ML OP (09:11)
[2020-05-30] MEDS ORDERED: PROTONIX 40MG T40 MG PO (09:13)
[2020-05-30 09:45] VITALS: BP 130/77; PULSE 76
--- NOTE | 2020-05-30 09:45 | NUR ---
Pt to GI bay 4 via cart from [facility]. Pt drowsy, but awake. Denies pain or nausea. Pt ambulates to recliner with stand by assistance. Coffee and applesauce given per pt request. Pt will continue to monitor. Call light within reach.
[2020-05-30 10:00] VITALS: BP 135/85; PULSE 75
--- NOTE | 2020-05-30 10:00 | NUR ---
Pt continues to rest. Denies needs. Tolerating po food and fluids without difficulties. Call light within reach.
[2020-05-30 10:03] VITALS: BP 128/83; PULSE 80; TEMP 97.8
[2020-05-30 10:15] VITALS: BP 121/64; PULSE 76
--- NOTE | 2020-05-30 10:15 | NUR ---
into speak with pt at this time.
--- NOTE | 2020-05-30 10:30 | NUR ---
Pt assisted to restroom with stand by assistance.
--- NOTE | 2020-05-30 10:45 | NUR ---
Pt ambulates back to room with stand by assistance. Discharge instructions reviewed. Pt voices undrstanding. IV site discontinued with all parts intact. Pt up to dress. Call light within reach.
--- NOTE | 2020-05-30 11:05 | NUR ---
Pt escorted to private car via wheel chair. Pt accompanied home by her grandson.
== END 2020-05-30 11:05 | disposition home or self-care (01) ==
LOC: SDCO 07:31
DX: K25.9 Gastric ulcer, unspecified as acute or chronic, without hemorrhage or perforation (principal); K64.0 First degree hemorrhoids; K21.9 Gastro-esophageal reflux disease without esophagitis; R19.5 Other fecal abnormalities; K44.9 Diaphragmatic hernia without obstruction or gangrene; I25.10 Atherosclerotic heart disease of native coronary artery without angina pectoris; I10 Essential (primary) hypertension; G89.29 Other chronic pain; M54.9 Dorsalgia, unspecified; D50.9 Iron deficiency anemia, unspecified; J45.909 Unspecified asthma, uncomplicated; M19.90 Unspecified osteoarthritis, unspecified site; G62.9 Polyneuropathy, unspecified; F32.9 Major depressive disorder, single episode, unspecified; Z90.710 Acquired absence of both cervix and uterus; Z96.643 Presence of artificial hip joint, bilateral; Z79.899 Other long term (current) drug therapy; Z88.2 Allergy status to sulfonamides; Z79.02 Long term (current) use of antithrombotics/antiplatelets; Z20.822 Contact with and (suspected) exposure to COVID-19
CPT/HCPCS: J2704

== ENCOUNTER 2020-06-06 14:03 | Outpatient (CLI) | payer MEDICARE, OTHER ==
[~2020-06-06] VITALS: Ht 162.6 cm; Wt 84.0 kg
[~2020-06-06 14:03] MED LIST changes: +LIQUIFILM TEARS15 ML OU; +NEOSPORIN OPHTH10 ML OP; +PROTONIX 40MG T40 MG PO
[2020-06-06] MEDS ORDERED: FLOVENT DI100 MCG/Ac IH (14:24)
[2020-06-06 14:30] VITALS: BP 133/77; PULSE 77; TEMP 98
[2020-06-08 15:53] LABS: BASO # 0.1 (0.0-0.2); BASO % 0.9 % (0.0-2.0); EOS # 0.1 (0.0-0.7); GRAN # 3.6 (1.4-6.5); GRAN % 63.6 % (42.2-75.2); HEMATOCRIT 37.4 % (37.0-47.0); HEMOGLOBIN 11.5 g/dl (12.5-16.0); LYMPH # 1.4 (1.2-3.4); LYMPH % 24.8 % (20.0-51.0); MEAN CELL VOLUME 83 fl (80.0-100.0); MEAN CORPUSCULAR HEMOGLOBIN 25 pg (27.0-31.0); MEAN CORPUSCULAR HGB CONC 31 g/dl (33.0-37.0); MEAN PLATELET VOLUME 10.3 fl (7.4-10.4); MONO # 0.5 (0.1-0.6); MONO % 9.4 % (1.7-9.3); PLATELET COUNT 265 K/mm3 (130-400); RED BLOOD COUNT 4.52 M/mm3 (4.10-5.30); REDCELL DISTRIBUTION WIDTH-CV 14.3 % (11.5-14.5)
== END 2020-06-06 16:04 ==
LOC: EUO
PROVIDERS: Internal Medicine Pulmonary Disease
DX: J45.40 Moderate persistent asthma, uncomplicated (principal); D50.9 Iron deficiency anemia, unspecified
CPT/HCPCS: J2182

== ENCOUNTER 2020-07-04 13:22 | Outpatient (CLI) | payer MEDICARE, OTHER ==
[~2020-07-04] VITALS: Ht 162.6 cm; Wt 85.4 kg
[~2020-07-04 13:22] MED LIST changes: +FLOVENT DI100 MCG/Ac IH
[2020-07-04 13:42] VITALS: BP 114/64; PULSE 69; TEMP 98.8
== END 2020-07-04 17:22 | disposition home or self-care (01) ==
LOC: EUO 13:22
DX: J45.40 Moderate persistent asthma, uncomplicated (principal); Z79.899 Other long term (current) drug therapy
CPT/HCPCS: J2182

== ENCOUNTER 2020-08-01 13:34 | Outpatient (CLI) | payer MEDICARE, OTHER ==
[~2020-08-01] VITALS: Ht 162.6 cm; Wt 85.1 kg
[2020-08-01 14:03] VITALS: BP 112/70; PULSE 72; TEMP 98.2
== END 2020-08-01 14:04 | disposition home or self-care (01) ==
LOC: EUO 13:34
DX: J45.40 Moderate persistent asthma, uncomplicated (principal)
CPT/HCPCS: J2182

== ENCOUNTER 2020-08-29 13:40 | Outpatient (CLI) | payer MEDICARE, OTHER ==
[~2020-08-29] VITALS: Ht 162.6 cm; Wt 86.8 kg
[2020-08-29 14:17] VITALS: BP 123/78; PULSE 75; TEMP 98
== END 2020-08-29 14:52 | disposition home or self-care (01) ==
LOC: EUO 13:40
DX: J45.40 Moderate persistent asthma, uncomplicated (principal)
CPT/HCPCS: J2182

== ENCOUNTER 2020-10-09 13:41 | Outpatient (CLI) | payer MEDICARE, OTHER ==
[~2020-10-09] VITALS: Ht 162 cm; Wt 87.5 kg
[2020-10-09 14:05] VITALS: BP 122/74; PULSE 74; TEMP 98.8
== END 2020-10-09 15:19 | disposition home or self-care (01) ==
LOC: EUO 13:41
DX: J45.40 Moderate persistent asthma, uncomplicated (principal)
CPT/HCPCS: J2182

== ENCOUNTER → 2020-10-10 | Outpatient (CLI) | payer MEDICARE, OTHER | LOC: MC.RAD 10-06 13:30 | DX: Z12.31 Encounter for screening mammogram for malignant neoplasm of breast (principal) ==

== ENCOUNTER 2020-11-07 13:20 | Outpatient (CLI) | payer MEDICARE, OTHER ==
[~2020-11-07] VITALS: Ht 162.6 cm; Wt 68.5 kg
[2020-11-07 14:02] VITALS: BP 122/73; PULSE 76; TEMP 99
== END 2020-11-07 14:00 | disposition home or self-care (01) ==
LOC: EUO 13:20
DX: J45.40 Moderate persistent asthma, uncomplicated (principal); Z79.899 Other long term (current) drug therapy
CPT/HCPCS: J2182

== ENCOUNTER → 2020-11-10 | Outpatient (CLI) | payer MEDICARE, OTHER ==
[2020-11-10 10:33] LABS: SYNOVIAL FL. MONONUCLEAR 35.5 % (0-75); SYNOVIAL FLUID RBC 4378000 /mm3 (0-0); SYNOVIAL FLUID WBC 7710 /mm3 (200-600)
[2020-11-10 10:39] LABS: SYNOVIAL FLUID APPEARANCE BLOODY; SYNOVIAL FLUID COLOR RED
== END ==
LOC: ZCOL.LAB 09:31
PROVIDERS: Orthopaedic Surgery
DX: M25.551 Pain in right hip (principal)

== ENCOUNTER 2020-12-05 13:02 | Outpatient (CLI) | payer MEDICARE, OTHER ==
[~2020-12-05] VITALS: Ht 162.6 cm; Wt 83.5 kg
[2020-12-05 14:06] VITALS: BP 118/65; PULSE 68; TEMP 97.8
== END 2020-12-05 14:25 | disposition home or self-care (01) ==
LOC: EUO 13:02
DX: J45.40 Moderate persistent asthma, uncomplicated (principal); Z79.899 Other long term (current) drug therapy
CPT/HCPCS: J2182

== ENCOUNTER 2021-01-02 13:26 | Outpatient (CLI) | payer MEDICARE, OTHER ==
[~2021-01-02] VITALS: Ht 162.6 cm; Wt 83.1 kg
[2021-01-02 13:40] VITALS: BP 121/69; PULSE 78; TEMP 98.3
== END 2021-01-02 17:20 | disposition home or self-care (01) ==
LOC: EUO 13:26
DX: J45.40 Moderate persistent asthma, uncomplicated (principal); Z79.899 Other long term (current) drug therapy
CPT/HCPCS: J2182

== ENCOUNTER 2021-01-30 10:09 | Outpatient (CLI) | payer MEDICARE, OTHER ==
[~2021-01-30] VITALS: Ht 162.6 cm; Wt 87.6 kg
[2021-01-30 10:53] VITALS: BP 117/74; PULSE 70; TEMP 97.9
== END 2021-01-30 12:54 ==
LOC: EUO 10:09
DX: J45.40 Moderate persistent asthma, uncomplicated (principal)
CPT/HCPCS: J2182

== ENCOUNTER 2021-02-27 13:19 | Outpatient (CLI) | payer MEDICARE, OTHER ==
[~2021-02-27] VITALS: Ht 162.6 cm; Wt 86.1 kg
[2021-02-27 13:36] VITALS: BP 141/71; PULSE 86; TEMP 98
== END 2021-02-27 14:01 ==
LOC: EUO 13:19
DX: J45.40 Moderate persistent asthma, uncomplicated (principal); Z79.899 Other long term (current) drug therapy
CPT/HCPCS: J2182

== ENCOUNTER 2021-03-03 19:21 | Inpatient (IN) | payer MEDICARE, OTHER ==
[~2021-03-03] VITALS: Ht 162.6 cm; Wt 84.0 kg
[2021-03-03 20:26] LABS: COLLECTION METHOD CLEAN CATCH
[2021-03-03 20:29] LABS: BASO % 0.3 % (0.0-2.0); EOS % 0.1 % (0-4.0); GRAN # 7.5 K/mm3 (1.4-6.5); GRAN % 75.5 % (42.2-75.2); HEMOGLOBIN 11.1 g/dl (12.5-16.0); LYMPH # 1.6 K/mm3 (1.2-3.4); LYMPH % 16.4 % (20.0-51.0); MEAN CELL VOLUME 81 fl (80.0-100.0); MEAN CORPUSCULAR HEMOGLOBIN 26 pg (27.0-31.0); MEAN CORPUSCULAR HGB CONC 32 g/dl (33.0-37.0); MEAN PLATELET VOLUME 9.9 fl (7.4-10.4); MONO # 0.7 K/mm3 (0.1-0.6); MONO % 7.4 % (1.7-9.3); PLATELET COUNT 330 K/mm3 (130-400); RED BLOOD COUNT 4.36 M/mm3 (4.10-5.30); REDCELL DISTRIBUTION WIDTH-CV 15.1 % (11.5-14.5)
[2021-03-03 20:32] LABS: MUCOUS Present (NOT PRESENT); PH 7 (5-8); SQUAMOUS EPITHELIAL 0-2 /hpf (0-10); URINE APPEARANCE Clear (CLEAR/HAZY); URINE BACTERIA Rare (NONE SEEN); URINE BILIRUBIN Negative (NEGATIVE); URINE BLOOD Negative (NEGATIVE); URINE COLOR Straw (YELLOW); URINE GLUCOSE Negative (NEGATIVE); URINE KETONE Negative (NEGATIVE); URINE LEUKOCYTE ESTERASE Negative (NEGATIVE); URINE NITRATE Negative (NEGATIVE); URINE PROTEIN(semi-quant) Negative (NEGATIVE); URINE RBC 0-2 /hpf (0-2); URINE UROBILINOGEN Negative (NEGATIVE)
[2021-03-03 20:45] LABS: ALANINE AMINOTRANSFERASE 19 U/L (0-55); ALBUMIN 4.1 gm/dL (3.4-4.8); ALKALINE PHOSPHATASE 111 U/L (40-150); ANION GAP 9 mmol/L (7-16); AST,SGOT 22 U/L (5-34); BILIRUBIN,TOTAL 0.2 mg/dL (0.2-1.2); BLOOD UREA NITROGEN 17 mg/dL (10-20); CALCIUM 10.1 mg/dL (8.4-10.2); CARBON DIOXIDE 25 mmol/L (23-31); CHLORIDE 106 mmol/L (98-107); GLUCOSE 93 mg/dL (70-99); POTASSIUM 4.2 mmol/L (3.5-4.5); SODIUM 140 mmol/L (136-145); TOTAL PROTEIN 7.5 gm/dL (6.2-8.1)
[2021-03-03 20:48] LABS: HEMATOCRIT 35.2 % (37.0-47.0)
[2021-03-03 21:08] LABS: TROPONIN-I < 0.010 ng/mL (0.00-0.033)
--- NOTE | 2021-03-04 01:30 | NUR ---
PT ARRIVES VIA CART TO ROOM 348. IS ABLE TO TRANSFER SELF FROM CART TO BED WITHOUT PROBLEM. HAS SL TO LEFT AC. IS ALERT AND ORIENTED X4. DENIES CHEST PAIN AT THIS TIME.
[2021-03-04] MEDS ORDERED: TYLENOL 325MG325 MG PO (02:30)
[2021-03-04] MEDS ORDERED: FOLIC ACID 40400 MCG PO (02:34)
[2021-03-04] MEDS ORDERED: REFRESH TEARS 330 ML OP (02:35)
[2021-03-04] MEDS ORDERED: VITAMIN C500 MG PO (02:36)
[2021-03-04] MEDS ORDERED: IMODIUM 2MG CAPS2 MG PO (02:36)
[2021-03-04] MEDS ORDERED: SPIRIVA RE2.5 MCG/Ac IH (02:38)
[2021-03-04 02:41] LABS: BASO % 0.4 % (0.0-2.0); EOS % 0.4 % (0-4.0); GRAN # 6.1 K/mm3 (1.4-6.5); GRAN % 64.5 % (42.2-75.2); LYMPH # 2.4 K/mm3 (1.2-3.4); LYMPH % 25.4 % (20.0-51.0); MEAN CELL VOLUME 81 fl (80.0-100.0); MEAN CORPUSCULAR HEMOGLOBIN 26 pg (27.0-31.0); MEAN CORPUSCULAR HGB CONC 32 g/dl (33.0-37.0); MEAN PLATELET VOLUME 10.3 fl (7.4-10.4); MONO # 0.8 K/mm3 (0.1-0.6); MONO % 8.9 % (1.7-9.3); PLATELET COUNT 297 K/mm3 (130-400); RED BLOOD COUNT 3.89 M/mm3 (4.10-5.30); REDCELL DISTRIBUTION WIDTH-CV 15.1 % (11.5-14.5)
[2021-03-04 02:48] LABS: INR 1.1 (0.8-3.0); PROTHROMBIN TIME 12.2 SECONDS (9.7-12.8)
[2021-03-04 02:51] LABS: PARTIAL THROMBOPLASTIN TIME 28.7 SECONDS (26.0-37.0)
[2021-03-04 02:52] LABS: HEMATOCRIT 31.5 % (37.0-47.0)
[2021-03-04 03:51] VITALS: BP 149/71; PULSE 91; TEMP 98.3
[2021-03-04 05:07] LABS: CHOLESTEROL RISK RATIO 2.8
[2021-03-04 07:45] VITALS: BP 131/57; PULSE 63; TEMP 98
--- NOTE | 2021-03-04 08:00 | NUR ---
RT AT BEDSIDE GIVING AM TREATMENT. A&O. VSS WITH TELE ON. DENIES CHEST PAIN, SOA OR NAUSEA. SR ON TELE IN THE 90'S. HEAD TO TOE ASSESSMENT COMPLETE. AM MEDS GIVEN. BREAKFAST TRAY ORDERED. NO OTHER NEEDS AT THIS TIME. PATIENT HOPING TO DISCHARGE HOME LATER TODAY.
[2021-03-04 11:44] VITALS: BP 135/53; PULSE 69; TEMP 98.1
[2021-03-04 15:27] VITALS: BP 122/59; PULSE 78; TEMP 97.9
[2021-03-04 19:50] VITALS: BP 124/58; PULSE 62; TEMP 98
--- NOTE | 2021-03-04 20:00 | NUR ---
PT IN AMBULATING IN HALLWAY WITH CANE AND STEADY GAIT. DENIES NEEDS, REPORTS BEING "BORED".
[2021-03-04 20:18] VITALS: BP 144/60; PULSE 64; TEMP 97.7
--- NOTE | 2021-03-04 21:45 | NUR ---
PT IN BED, TAKES HS MEDS WITHOUT PROBLEM. SL TO LEFT AC, FLUSHES WELL. DENIES PAIN.
--- NOTE | 2021-03-04 23:48 | NUR ---
PT REPORTS HEADACHE, TYLENOL 650MG PO NOW.
[2021-03-05] VITALS (7 sets, daily range): BP systolic 108–140; BP diastolic 49–74; PULSE 65–82; TEMP 97.3–98.7
[2021-03-05 07:38] LABS: BASO % 0.6 % (0.0-2.0); EOS # 0.1 K/mm3 (0.0-0.7); EOS % 1.1 % (0-4.0); GRAN # 3.4 K/mm3 (1.4-6.5); GRAN % 53.5 % (42.2-75.2); HEMOGLOBIN 10.9 g/dl (12.5-16.0); LYMPH % 32.4 % (20.0-51.0); MEAN CELL VOLUME 81 fl (80.0-100.0); MEAN CORPUSCULAR HEMOGLOBIN 26 pg (27.0-31.0); MEAN CORPUSCULAR HGB CONC 32 g/dl (33.0-37.0); MEAN PLATELET VOLUME 10.5 fl (7.4-10.4); MONO # 0.8 K/mm3 (0.1-0.6); MONO % 11.9 % (1.7-9.3); PLATELET COUNT 299 K/mm3 (130-400); RED BLOOD COUNT 4.25 M/mm3 (4.10-5.30); REDCELL DISTRIBUTION WIDTH-CV 15.6 % (11.5-14.5)
[2021-03-05 07:58] LABS: HEMATOCRIT 34.6 % (37.0-47.0)
--- NOTE | 2021-03-05 08:00 | NUR ---
PATIENT IS A&O. VSS ON TELE. PATIENT DENIES CHEST PAIN OR SOA. PATIENT ONLY C/O [place], TYLENOL GIVEN. PATIENT REPORTS SHE NORALLY DRINKS CAFFEINE AND HASN'T THE LAST COUPLE DAYS IN THE HOSPITAL. HEAD TO TOE ASSESSMENT COMPLETE. PATIENT AMBULATING AROUND ROOM INDEPENDENTLY WITH STEADY GAIT WITH CANE. AM MEDS GIVEN. BREAKFAST TRAY ORDERED. NO OTHER NEEDS AT THIS TIME.
[2021-03-05 08:01] LABS: ANION GAP 10 mmol/L (7-16); BLOOD UREA NITROGEN 15 mg/dL (10-20); CALCIUM 9.3 mg/dL (8.4-10.2); CARBON DIOXIDE 27 mmol/L (23-31); CHLORIDE 108 mmol/L (98-107); GLUCOSE 97 mg/dL (70-99); SODIUM 145 mmol/L (136-145)
[2021-03-05 08:09] LABS: TROPONIN-I < 0.010 ng/mL (0.00-0.033)
--- NOTE | 2021-03-05 12:15 | NUR ---
Initial visit; Patient thanked Tour Leader for looking in on her, offering God's blesings and prayer. Patient requested a Bible.
--- NOTE | 2021-03-05 12:46 | NUR ---
Photocomposing Machine Operator met with patient to discuss discharge planning. Patient lives in [place] with her grandson, Dom and sees Dr. Robert for primary care. Patient obtains her medications from [facility] and has a cane and walker at home. Patient reports she uses a walker for longer distances. Patient is independent with ADLS and plans to return home upon discharge. Patient reports she has completed DPOA-HC and that her daughter, Marla (ph#[phone]) is designated. Patient is interested in information about private duty services to assist with housekeeping and meal preparation. SW provided contact information for local agencies that can do private duty services. Discharge Plan: Home
--- NOTE | 2021-03-05 14:25 | NUR ---
PATIENT AMBULATING IN HALLS INDEPENDENTLY WITH CANE. GAIT STEADY. PATIENT PLANNING TO SHOWER AFTER WALK.
--- NOTE | 2021-03-05 17:24 | NUR ---
Patient sitting up in the recliner eating dinner. A&Ox4. VSS. IV CDI. Nurse informed the patient that she will be NPO after midnight. Patient verbalized an understanding. Patient had questions about diagnostic test while in the hospital, nure went over those test. Denies chest pain, pain and discomfort. No further needs expressed. Call light within reach
--- NOTE | 2021-03-05 21:31 | NUR ---
Pilo assessed around 2019. Alert and oriented, and able to make needs known. Denies having pain and discomfort at this time. Aware that she is to be NPO after midnight for lexiscan tomorrow. Voices no questions, needs, or concerns at this time. In bed with call light within reach.
[2021-03-06] VITALS (11 sets, daily range): BP systolic 104–153; BP diastolic 39–71; PULSE 68–97; TEMP 98.1–99.2
--- NOTE | 2021-03-06 00:04 | NUR ---
During midnight rounds, patient complaining of headache. Too soon to give Acetaminophen. Given PRN [place] for pain, as well as Melatonin to help patient get some rest. Voices no further questions, needs, or concerns at this time. In bed with call light within reach. Aware that she is NPO after midnight for lexiscan tomorrow.
--- NOTE | 2021-03-06 06:10 | NUR ---
Patient has been resting in bed with call light within reach. Voiced that Melatonin and Noro was effective during the night. Denies pain and discomfort at this time. Voices no questions, needs, or concerns at this time. In bed with call light within reach.
[2021-03-06 06:32] LABS: BASO % 0.5 % (0.0-2.0); EOS # 0.1 K/mm3 (0.0-0.7); EOS % 0.9 % (0-4.0); GRAN # 3.5 K/mm3 (1.4-6.5); GRAN % 59.9 % (42.2-75.2); LYMPH # 1.5 K/mm3 (1.2-3.4); LYMPH % 25.3 % (20.0-51.0); MEAN CELL VOLUME 82 fl (80.0-100.0); MEAN CORPUSCULAR HGB CONC 31 g/dl (33.0-37.0); MEAN PLATELET VOLUME 10.6 fl (7.4-10.4); MONO # 0.8 K/mm3 (0.1-0.6); MONO % 12.9 % (1.7-9.3); PLATELET COUNT 301 K/mm3 (130-400); RED BLOOD COUNT 3.85 M/mm3 (4.10-5.30); REDCELL DISTRIBUTION WIDTH-CV 15.5 % (11.5-14.5)
[2021-03-06 06:43] LABS: CALCIUM 9.5 mg/dL (8.4-10.2); CREATININE, serum 0.91 mg/dL (0.57-1.11); HEMATOCRIT 31.7 % (37.0-47.0); HEMOGLOBIN 9.8 g/dl (12.5-16.0); MEAN CORPUSCULAR HEMOGLOBIN 25 pg (27.0-31.0); POTASSIUM 4.2 mmol/L (3.5-4.5)
--- NOTE | 2021-03-06 08:00 | NUR ---
PATIENT IS A&O. VSS ON TELE. PATIENT DENIES CHEST PAIN OR SOA. NPO FOR LEXISCAN TODAY. HEAD TO TOE ASSESSMENT COMPLETE. PATIENT AMBULATING AROUND ROOM INDEPENDENTLY WITH STEADY GAIT WITH CANE. AM MEDS GIVEN. BREAKFAST TRAY ORDERED. NO OTHER NEEDS AT THIS TIME.
--- NOTE | 2021-03-06 09:00 | NUR ---
PATIENT GOING DOWN FOR SAM
--- NOTE | 2021-03-06 10:12 | NUR ---
Follow-up visit; Patient thanked [employer] again for looking in on her while she has been here and keeping her in [employer]'s prayers.
--- NOTE | 2021-03-06 14:00 | NUR ---
PATIENT INQUIRING ABOUT LEXISCAN RESULTS AND EATING. CALLED HOSPITALIST. NAOMIISVAN POSITIVE. CARDIOLOGY NOTIFIED.
--- NOTE | 2021-03-06 20:10 | NUR ---
Pt. sitting up in bed. Pt. is A&OX3, assessment complete. INT to lt. ac patent. Pt. denies pain. Pt. request a shower this evening. Will assist pt. with this. Pt. denies further needs, call light within reach.
[2021-03-07] VITALS (20 sets, daily range): BP systolic 63–156; BP diastolic 35–456; PULSE 56–88; TEMP 98–99.2
[2021-03-07 06:58] LABS: BASO % 0.4 % (0.0-2.0); EOS # 0.1 K/mm3 (0.0-0.7); EOS % 0.9 % (0-4.0); GRAN # 3.5 K/mm3 (1.4-6.5); GRAN % 61.1 % (42.2-75.2); LYMPH # 1.4 K/mm3 (1.2-3.4); MEAN CELL VOLUME 80 fl (80.0-100.0); MEAN CORPUSCULAR HEMOGLOBIN 26 pg (27.0-31.0); MEAN CORPUSCULAR HGB CONC 32 g/dl (33.0-37.0); MEAN PLATELET VOLUME 10.7 fl (7.4-10.4); MONO # 0.8 K/mm3 (0.1-0.6); MONO % 13.2 % (1.7-9.3); PLATELET COUNT 285 K/mm3 (130-400); RED BLOOD COUNT 3.88 M/mm3 (4.10-5.30); REDCELL DISTRIBUTION WIDTH-CV 15.3 % (11.5-14.5)
[2021-03-07 07:13] LABS: CALCIUM 9.7 mg/dL (8.4-10.2); CREATININE, serum 0.91 mg/dL (0.57-1.11)
[2021-03-07 07:18] LABS: HEMATOCRIT 31.1 % (37.0-47.0)
--- NOTE | 2021-03-07 09:57 | NUR ---
SEE MERGE FOR ALL MEDICATION ADMINISTRATION TIMES, INTRA AND POST SEDATION ASSESSMENTS
--- NOTE | 2021-03-07 12:07 | NUR ---
PT RETURNED TO ROOM @1148. PT IS A/O X3, TRBAND INPLACE. RIGHT GROIN ACESS WITH ANGIO SEAL. IV TO LA. PT RESTING IN BED. VSS. PT DENIES PAIN. PT IS DROWSEY.
--- NOTE | 2021-03-07 13:47 | NUR ---
PT CALLED AND WANTED VOID. FOUND FEMORAL SITE OOZING AND IV TO LAC OUT AND OOZING. PRESSURE HELD TO BOTH SITES AND SHEET ROCK SANDER CALLED. SHEET ROCK SANDER NURSE TOOK OVER PRESSURE TO RIGHT FEMORAL SITE. HOMEOSTASIS ACHIEVED TO LAC.
--- NOTE | 2021-03-07 14:29 | NUR ---
ELISEO DELGADO SERIVCES CONTACTED FOR IV START. AFTER 2 ATTEMPTS UNABLE TO START. CONTACTED [facility] WITH [employer]. HE STARTTED A NEW LINE IN LAC.
--- NOTE | 2021-03-07 15:28 | NUR ---
HEMOSTASIS OBTAINED AFTER [facility]ATH[facility] NURSE HELD PRESSURE FOR 20 MINS. BED CHANGE AND CLEANUP BEDBATH.
--- NOTE | 2021-03-07 15:35 | NUR ---
AFTER HAVING ANESTHESIA START IV ACESS IV BOLUS COMPLETE. VSS. BP 156/63. REMOVED 5 MLS AIR FROM TR BAND.
--- NOTE | 2021-03-07 15:58 | NUR ---
TR BAND REMOVED. HOMEOSTASIS ACHIEVED.
--- NOTE | 2021-03-07 20:30 | NUR ---
Pt. sitting up in bed. Pt. is a&OX3, assessment complete. IV to lt. AC patent, IV fluids infusing per orders. Rt. groin cath site is CDI, area is soft with no sign of hematoma. Pt. also has a rt. wrist radial cath site. Bandaid is CDI. Pt. reports generalized pain at a 5 on pain scale and requested a pain pill. Gave per orders. Pt. denies further needs, call light within reach.
[2021-03-08 00:06] VITALS: BP 114/45; PULSE 75; TEMP 99.2
[2021-03-08 03:22] VITALS: BP 120/54; PULSE 71; TEMP 98.6
[2021-03-08 04:31] VITALS: BP 120/54; PULSE 71; TEMP 98.6
[2021-03-08 07:04] LABS: BASO % 0.1 % (0.0-2.0); EOS % 0.3 % (0-4.0); GRAN # 5.1 K/mm3 (1.4-6.5); GRAN % 70.4 % (42.2-75.2); LYMPH # 1.2 K/mm3 (1.2-3.4); LYMPH % 16.9 % (20.0-51.0); MEAN CELL VOLUME 81 fl (80.0-100.0); MEAN CORPUSCULAR HGB CONC 31 g/dl (33.0-37.0); MEAN PLATELET VOLUME 10.8 fl (7.4-10.4); MONO # 0.9 K/mm3 (0.1-0.6); PLATELET COUNT 278 K/mm3 (130-400); RED BLOOD COUNT 3.87 M/mm3 (4.10-5.30); REDCELL DISTRIBUTION WIDTH-CV 15.4 % (11.5-14.5)
[2021-03-08 07:15] VITALS: BP 117/50; PULSE 72; TEMP 99.5
[2021-03-08 07:20] LABS: HEMATOCRIT 31.5 % (37.0-47.0); HEMOGLOBIN 9.8 g/dl (12.5-16.0); MEAN CORPUSCULAR HEMOGLOBIN 25 pg (27.0-31.0)
[2021-03-08 07:21] LABS: CALCIUM 8.9 mg/dL (8.4-10.2); CREATININE, serum 0.88 mg/dL (0.57-1.11)
[2021-03-08] MEDS ORDERED: LIPITOR 40MG TA40 MG PO (09:01)
[2021-03-08] MEDS ORDERED: ASPIRIN E.C. 8181 MG PO (09:01)
--- NOTE | 2021-03-08 09:58 | NUR ---
PT RESTING IN BED AFTER USING BR. PT INDEPENDENT IN ROM. CATHETER SITES CDI NO BLOOD NOTED. PT DOING WELL BHARGAV WALSH OK TO DISCHARGE LATER TODAY.
--- NOTE | 2021-03-08 09:59 | NUR ---
Public Finance Specialist met with patient to review discharge plan. Patient states she will be released today and is feeling good about going home. Patient has been ambulating the halls independently with her cane. SW presented and reviewed IM form with patient who verbalized understanding then provided signature. SW placed form in chart then provided copy to patient. Discharge Plan: Home
[2021-03-08 11:19] VITALS: BP 142/72; PULSE 72; TEMP 99.9
[2021-03-08] MEDS ORDERED: TOPROL XL 25MG25 MG PO ×2 (11:35)
[2021-03-08] MEDS ORDERED: LOPRESSOR 225 MG/TAB PO (11:49)
--- NOTE | 2021-03-08 14:08 | NUR ---
DISCHARGE INSTSRUCTIONS REVIEWED WITH PT. QUESTIONS ANSWERED. PT TAKEN OUT PER WHEEL CHAIR.
== END 2021-03-08 14:09 | disposition home or self-care (01) | DRG 246 ==
LOC: COL.ER 19:21 → SURG 23:39
PROVIDERS: Nurse Practitioner Family; Physician Assistant; Student in an Organized Health Care Education/Training Program; ADMIT Internal Medicine
PROC: 027034Z Dilation of Coronary Artery, One Artery with Drug-eluting Intraluminal Device, Percutaneous Approach (ICD-10-PCS; principal; 2021-03-03)
PROC: 4A023N6 Measurement of Cardiac Sampling and Pressure, Right Heart, Percutaneous Approach (ICD-10-PCS; 2021-03-03)
PROC: B2111ZZ Fluoroscopy of Multiple Coronary Arteries using Low Osmolar Contrast (ICD-10-PCS; 2021-03-03)
DX: I25.110 Atherosclerotic heart disease of native coronary artery with unstable angina pectoris (principal); T81.19XA Other postprocedural shock, initial encounter; J45.901 Unspecified asthma with (acute) exacerbation; I10 Essential (primary) hypertension; E78.5 Hyperlipidemia, unspecified; K21.9 Gastro-esophageal reflux disease without esophagitis; G62.9 Polyneuropathy, unspecified; F32.A Depression, unspecified; G89.29 Other chronic pain; M54.9 Dorsalgia, unspecified; M16.0 Bilateral primary osteoarthritis of hip; M19.042 Primary osteoarthritis, left hand; M19.041 Primary osteoarthritis, right hand; D50.9 Iron deficiency anemia, unspecified; R58 Hemorrhage, not elsewhere classified; I95.81 Postprocedural hypotension; Y84.8 Other medical procedures as the cause of abnormal reaction of the patient, or of later complication, without mention of misadventure at the time of the procedure; Z95.5 Presence of coronary angioplasty implant and graft; Z86.711 Personal history of pulmonary embolism; Z87.891 Personal history of nicotine dependence; Z88.2 Allergy status to sulfonamides
CPT/HCPCS: OP; 99232-AI; 99233-AI; 99239; A9500; C1760; C1769; C1874; C1887; C1894; C9600; G0378; J0583; J1644; J1650; J2250; J2785; J3010

== ENCOUNTER 2021-03-27 13:02 | Outpatient (CLI) | payer MEDICARE, OTHER ==
[~2021-03-27] VITALS: Ht 162.6 cm; Wt 85.0 kg
[~2021-03-27 13:02] MED LIST changes: +ASPIRIN E.C. 8181 MG PO; +LIPITOR 40MG TA40 MG PO; +LOPRESSOR 225 MG/TAB PO; +REFRESH TEARS 330 ML OP; +SPIRIVA RE2.5 MCG/Ac IH; +TOPROL XL 25MG25 MG PO
[2021-03-27 14:01] VITALS: BP 121/81; PULSE 84; TEMP 97.9
== END 2021-03-27 14:42 ==
LOC: EUO 13:02
DX: J45.40 Moderate persistent asthma, uncomplicated (principal)
CPT/HCPCS: J2182

== ENCOUNTER 2021-04-24 13:13 | Outpatient (CLI) | payer MEDICARE, OTHER ==
[~2021-04-24] VITALS: Ht 162.6 cm; Wt 82.3 kg
[2021-04-24 14:07] VITALS: BP 128/45; PULSE 72; TEMP 98.8
== END 2021-04-24 14:30 | disposition home or self-care (01) ==
LOC: EUO 13:13
DX: J45.40 Moderate persistent asthma, uncomplicated (principal); Z79.899 Other long term (current) drug therapy
CPT/HCPCS: J2182

== ENCOUNTER 2021-06-19 10:15 | Outpatient (CLI) | payer MEDICARE, OTHER ==
[~2021-06-19] VITALS: Ht 162.6 cm; Wt 79.6 kg
[2021-06-19 10:47] VITALS: BP 112/62; PULSE 70; TEMP 98.6
== END 2021-06-19 12:41 | disposition home or self-care (01) ==
LOC: EUO 10:15
DX: J45.40 Moderate persistent asthma, uncomplicated (principal)
CPT/HCPCS: J2182

== ENCOUNTER 2021-07-18 10:07 | Outpatient (CLI) | payer OTHER ==
[~2021-07-18] VITALS: Ht 162.6 cm; Wt 79.6 kg
[2021-07-18 10:35] VITALS: BP 135/75; PULSE 73; TEMP 98.5
== END 2021-07-18 11:19 | disposition home or self-care (01) ==
LOC: EUO 10:07
DX: J45.40 Moderate persistent asthma, uncomplicated (principal); Z79.899 Other long term (current) drug therapy
CPT/HCPCS: J2182

== ENCOUNTER 2021-08-15 10:12 | Outpatient (CLI) | payer OTHER ==
[~2021-08-15] VITALS: Ht 162.6 cm; Wt 80.1 kg
[2021-08-15 10:34] VITALS: BP 146/75; PULSE 66; TEMP 98.5
== END 2021-08-15 11:05 | disposition home or self-care (01) ==
LOC: EUO 10:12
DX: J45.40 Moderate persistent asthma, uncomplicated (principal)
CPT/HCPCS: J2182

== ENCOUNTER 2021-09-11 13:19 | Outpatient (CLI) | payer MEDICARE, OTHER ==
[~2021-09-11] VITALS: Ht 162.6 cm; Wt 81.6 kg
[2021-09-11 14:05] VITALS: BP 118/65; PULSE 56; TEMP 98.3
[2021-09-11] MEDS ORDERED: LIPITOR 40MG TA40 MG PO (14:08)
== END 2021-09-11 14:45 | disposition home or self-care (01) ==
LOC: EUO 13:19
DX: J45.40 Moderate persistent asthma, uncomplicated (principal); Z79.899 Other long term (current) drug therapy
CPT/HCPCS: J2182

== ENCOUNTER → 2021-10-11 | Outpatient (CLI) | payer MEDICARE, OTHER | LOC: MC.RAD 09:30 | DX: Z12.31 Encounter for screening mammogram for malignant neoplasm of breast (principal) ==

== ENCOUNTER 2021-11-06 13:17 | Outpatient (CLI) | payer OTHER ==
[~2021-11-06] VITALS: Ht 162.6 cm; Wt 82.5 kg
[2021-11-06 13:51] VITALS: BP 102/56; PULSE 67; TEMP 98.2
[2021-11-06] MEDS ORDERED: CYMBALTA 30MG30 MG PO (16:12)
[2021-11-06] MEDS ORDERED: PROTONIX20 MG PO (16:14)
[2021-11-06] MEDS ORDERED: 00186-0370-20 IH (16:16)
[2021-11-06] MEDS ORDERED: LIDODERM 5% PATC1 EA TP (16:17)
== END 2021-11-06 14:30 | disposition home or self-care (01) ==
LOC: EUO 13:17
DX: J45.40 Moderate persistent asthma, uncomplicated (principal)
CPT/HCPCS: J2182

== ENCOUNTER 2022-06-18 12:37 | Outpatient (CLI) | payer MEDICARE, OTHER ==
[~2022-06-18] VITALS: Ht 162.6 cm; Wt 83.7 kg
[~2022-06-18 12:37] MED LIST changes: +00186-0370-20 IH; +CYMBALTA 30MG30 MG PO; +PROTONIX20 MG PO
[2022-06-18 13:04] VITALS: BP 141/68; PULSE 60
== END 2022-06-18 14:00 | disposition home or self-care (01) ==
LOC: EUO 12:37
DX: J45.40 Moderate persistent asthma, uncomplicated (principal)
CPT/HCPCS: J2182

== ENCOUNTER 2022-07-16 13:06 | Outpatient (CLI) | payer MEDICARE, OTHER ==
[~2022-07-16] VITALS: Ht 162.6 cm; Wt 84.4 kg
[2022-07-16 13:14] VITALS: BP 121/60; PULSE 81; TEMP 98.5
--- NOTE | 2022-07-16 14:16 | NUR ---
pt discharged at approx 1400. she tolerated her nucala injection well and her VS were WNL. she tolerated po fluids before and after injection. she was given an appointment card with her next appointment listed and she was free from concerns and complaints at time of discharge.
== END 2022-07-16 14:10 | disposition home or self-care (01) ==
LOC: EUO 13:06
DX: J45.40 Moderate persistent asthma, uncomplicated (principal)
CPT/HCPCS: J2182

== ENCOUNTER 2023-04-23 10:42 | Outpatient (CLI) | payer MEDICARE, OTHER ==
[~2023-04-23] VITALS: Ht 162.6 cm; Wt 82.0 kg
[~2023-04-23 10:42] MED LIST changes: +BREZTRI AEROS10.7 GM IH; +FLOVENT 220MCG7.9 GM IH; -PROTONIX20 MG PO
[2023-04-23 11:00] VITALS: BP 145/71; PULSE 66; TEMP 98.3
[2023-04-23] MEDS ORDERED: Mepolizumab 100 MG VIAL SQ ONE (11:00)
== END 2023-04-23 11:31 ==
LOC: EUO 10:42
DX: J45.40 Moderate persistent asthma, uncomplicated (principal)
CPT/HCPCS: J2182

== ENCOUNTER 2023-05-21 07:59 | Outpatient (CLI) | payer MEDICARE, OTHER ==
[~2023-05-21] VITALS: Ht 162.6 cm; Wt 80.3 kg
[2023-05-21] MEDS ORDERED: LOPRESSOR 225 MG/TAB PO (08:12)
[2023-05-21 08:15] VITALS: BP 106/68; PULSE 61; TEMP 98.5
[2023-05-21] MEDS ORDERED: Mepolizumab 100 MG VIAL SQ ONE (08:15)
--- NOTE | 2023-05-21 08:45 | NUR ---
Pt tolerated nucala without issue. She exits dept with steady gait. Free of complaints at time of departure.
== END 2023-05-21 08:45 | disposition home or self-care (01) ==
LOC: EUO 07:59
DX: J45.40 Moderate persistent asthma, uncomplicated (principal)
CPT/HCPCS: J2182

== ENCOUNTER → 2023-07-10 | Outpatient (CLI) | payer MEDICARE, OTHER ==
[~2023-07-10] MED LIST changes: +Gadoterate 20 ML VIAL IV ONE; +PROAIR DIGIHAL90 MCG IH
== END ==
LOC: COL.RAD 12:03
DX: M47.816 Spondylosis without myelopathy or radiculopathy, lumbar region (principal); M47.817 Spondylosis without myelopathy or radiculopathy, lumbosacral region; M48.061 Spinal stenosis, lumbar region without neurogenic claudication; Z98.890 Other specified postprocedural states
CPT/HCPCS: A9575

== ENCOUNTER → 2023-07-24 | Outpatient (CLI) | payer MEDICARE, OTHER ==
[~2023-07-24] MED LIST changes: +Albuterol 0.083% Neb Soln 2.5 MG/3 ML UD IH ONE; -Gadoterate 20 ML VIAL IV ONE
== END ==
LOC: COL.CARD 10:30
DX: R06.02 Shortness of breath (principal); Z87.891 Personal history of nicotine dependence

== ENCOUNTER 2024-01-02 11:05 | Emergency (ER) | payer MEDICARE, OTHER ==
[~2024-01-02] VITALS: Ht 160 cm; Wt 82.3 kg
[~2024-01-02 11:05] MED LIST changes: -Albuterol 0.083% Neb Soln 2.5 MG/3 ML UD IH ONE
[2024-01-02 11:17] VITALS: TEMP 98.5
[2024-01-02] MEDS ORDERED: Acetaminophen 500 MG TAB PO ONE (13:15)
[2024-01-02 14:02] VITALS: BP 140/69; PULSE 55
== END 2024-01-02 14:02 | disposition home or self-care (01) ==
LOC: COL.ER 11:05
DX: S09.90XA Unspecified injury of head, initial encounter (principal); W01.198A Fall on same level from slipping, tripping and stumbling with subsequent striking against other object, initial encounter